=== PATIENT | male | born 1950 | race Caucasian/White ===

== ENCOUNTER → 2018-02-12 07:47 | Outpatient (CLI) | payer MEDICARE, OTHER, SELFPAY ==
--- NOTE | 2018-02-12 07:47 | DT_ITS ---
This patient was seen during an EMR downtime February 11, 2018 - February 18, 2018. This patient may have a combination of paper and electronic documentation or all paper documentation. All documentation is viewable within the e-chart portion of [facility] for each patient visit.
--- NOTE | 2018-02-12 08:05 | US_ITS ---
STUDY: ABDOMINAL ULTRASOUND - RIGHT UPPER QUADRANT REASON FOR VISIT: Male, 67 years old. Elevated LFTs TECHNIQUE: Ultrasound evaluation of the right upper quadrant was performed with real-time and static barragan-scale imaging. TECHNICAL QUALITY: Limited. Examination limited by bowel gas. COMPARISON: None. FINDINGS: Liver: The liver measures 14.17 cm. There is increased echogenicity consistent with fatty infiltration. The bile ducts are within normal limits. There is hepatic color flow. The direction of portal flow is hepatopetal. There is no demonstrated mass lesion. Gallbladder: The patient is status post cholecystectomy. Common Bile Duct (C.B.D.): The common bile duct measures 2.3 mm. Pancreas: There is limited visualization of the pancreas. Right Kidney: Normal size of the right kidney. The right kidney measures 11.7 x 5.0 x 6.1 cm. Normal renal cortex. The right cortex measures 2.4 cm. There is no demonstrated renal mass or cyst. There is no right hydronephrosis. IMPRESSION: Diffuse fatty infiltration of liver, no discrete lesion. Previous cholecystectomy Limited evaluation of the pancreas Electronically Signed: Kurt Cisneros MD at 7:31 EDT , Service support , STUDY: ABDOMINAL ULTRASOUND - LEFT UPPER QUADRANT REASON FOR VISIT: Male, 67 years old. Palpable splenomegaly TECHNIQUE: Ultrasound evaluation of the left upper quadrant was performed with real-time and static barragan-scale imaging. TECHNICAL QUALITY: Limited. Examination limited by bowel gas. COMPARISON: None. FINDINGS: Spleen: Spleen is borderline enlarged at 15.2 x 6.6 x 6.2 cm. No discrete splenic lesion is identified. Limited evaluation of the left kidney shows no suspicious sonographic findings. US/Abdomen Limited IMPRESSION: Borderline splenomegaly, no splenic lesion identified. Electronically Signed: Kurt Cisneros MD at 7:32 EDT , Service support ,
== END ==
PROVIDERS: Family Provider Internal Medicine; PCP Internal Medicine; Visit Provider Internal Medicine
DX: K76.0 Fatty (change of) liver, not elsewhere classified (principal); R16.1 Splenomegaly, not elsewhere classified
CPT/HCPCS: 76705

== ENCOUNTER → 2019-02-12 08:05 | Outpatient (CLI) | payer MEDICARE, OTHER, SELFPAY ==
[2019-01-06 10:11] VITALS: BMI 32.1
--- NOTE | 2019-02-12 08:11 | US_ITS ---
STUDY: ABDOMINAL ULTRASOUND - RIGHT UPPER QUADRANT REASON FOR VISIT: Male, 68 years old. Fatty liver, status post cholecystectomy TECHNIQUE: Ultrasound evaluation of the right upper quadrant was performed with real-time and static barragan-scale imaging. TECHNICAL QUALITY: Adequate. COMPARISON: Previous study of earlier this date 8:07 AM FINDINGS: Liver: The liver measures 18.8 cm. There is increased echogenicity consistent with fatty infiltration. The bile ducts are within normal limits. There is hepatic color flow. The direction of portal flow is hepatopetal. There is no demonstrated mass lesion. Gallbladder: The patient is status post cholecystectomy. Common Bile Duct (C.B.D.): The common bile duct measures 3.4 mm. Pancreas: Normal size of the head, body and tail of the pancreas. There is increased echogenicity of the pancreas. There is no demonstrated pancreatic mass or cyst. Right Kidney: Normal size of the right kidney. The right kidney measures 11.5 x 6.1 x 7.2 cm. Normal renal cortex. The right cortex measures 2.0 cm. There is no demonstrated renal mass or cyst. There is no right hydronephrosis. US/Abdomen Limited IMPRESSION: Mild hepatomegaly. Increased hepatic echogenicity suggestive of steatosis. Status post cholecystectomy. There is no dilatation of the intra or extra hepatic biliary ductal system. Electronically Signed: Lázaro Rodriguez MD at 21:21 EDT , Service support ,
--- NOTE | 2019-02-12 08:20 | US_ITS ---
STUDY: ABDOMINAL ULTRASOUND - RIGHT UPPER QUADRANT REASON FOR VISIT: Male, 68 years old. Splenomegaly TECHNIQUE: Ultrasound evaluation of the right upper quadrant was performed with real-time and static barragan-scale imaging. TECHNICAL QUALITY: Adequate. COMPARISON: None. FINDINGS: The spleen measures 15.2 x 6.0 x 6.3 cm. Splenic volume is approximately 301 mL. The left kidney measures 11.5 x 5.8 x 6.9 cm. Left renal cortex measures 2.6 cm. US/Spleen IMPRESSION: Mild splenomegaly. Electronically Signed: Lázaro Rodriguez MD at 20:16 EDT , Service support ,
== END ==
PROVIDERS: Family Provider Internal Medicine; PCP Internal Medicine; Referring Provider Internal Medicine; Visit Provider Internal Medicine
DX: K76.0 Fatty (change of) liver, not elsewhere classified (principal); R16.1 Splenomegaly, not elsewhere classified
CPT/HCPCS: 76705

== ENCOUNTER → 2019-02-14 08:59 | Outpatient (CLI) | payer MEDICARE, OTHER, SELFPAY ==
[2019-01-06 10:11] VITALS: BMI 32.1
--- NOTE | 2019-02-14 09:03 | CDU_ITS ---
Reason For Study: PVD Rt. Velocities/BP Lt. Velocities/BP Prox CCA 68.5/16.8 cm/sec. Prox CCA 87.5/16.8 cm/sec. Mid CCA 57.5/11.3 cm/sec. Mid CCA 74.9/12.6 cm/sec. Dist CCA 59.7/15.7 cm/sec. Dist CCA 64.5/12.6 cm/sec. Prox ICA 52.6/16.8 cm/sec. Prox ICA 50.4/15.4 cm/sec. Mid ICA 52.6/16 cm/sec. Mid ICA 69.2/24.8 cm/sec. Dist ICA 60.9/20.9 cm/sec. Dist ICA 71.1/21.1 cm/sec. Rt. ICA/CCA = 1.0. Lt. ICA/CCA = 0.9. Prox ECA 86.1/6.9 cm/sec. Prox ECA 112.1/9 cm/sec. Rt. Vert. 44.8/9.9 cm/sec. Lt. Vert. 53.2/16.3 cm/sec. Right Extracranial There is intimal thickening but no significant atherosclerotic plaque noted in the right common carotid artery. There is heterogeneous, irregular atherosclerotic plaque noted in the right internal carotid artery. There is intimal thickening but no significant atherosclerotic plaque noted in the right external carotid artery. Antegrade flow is noted in the right vertebral artery. There is homogeneous, smooth atherosclerotic plaque noted in the right bulb. Left Extracranial There is homogeneous, smooth atherosclerotic plaque noted in the left common carotid artery. There is heterogeneous, irregular atherosclerotic plaque noted in the left internal carotid artery. There is heterogeneous, irregular atherosclerotic plaque noted in the left external carotid artery. Antegrade flow is noted in the left vertebral artery. Procedure Carotid Duplex 03930. Exam performed in department. Interpretation Summary Mild (<50%) stenosis right extracranial internal carotid. Mild (<50%) stenosis left extracranial internal carotid. Flow within the vertebral arteries is antegrade bilaterally. Ordering Physician: Amy Heath Referring Physician: Amy Heath Performed By: Geno Membreno RVT
--- NOTE | 2019-02-14 09:03 | ART_ITS ---
Reason For Study: PVD Procedure A bilateral lower extremity continuous wave Doppler with analog waveform analysis,segmental pressures,and ankle brachial indexes without exercise. Left Segmental Pressures Left brachial= 155mmHg. Left posterior tibial artery = >254mmHg. Left dorsalis pedis artery = >254mmHg. The left dorsalis pedis waveforms are biphasic. The left posterior tibial artery waveforms are biphasic. Right Segmental Pressures Right brachial= 157mmHg. Right posterior tibial artery = >254mmHg. Right dorsalis pedis artery = >254mmHg. Right digit = 80 mmHg. The right dorsalis pedis waveforms are biphasic. The right posterior tibial artery waveforms are biphasic. Indices The right ankle brachial index by the dorsalis pedis is NC. The right ankle brachial index by the posterior tibial artery is NC. The right digital-brachial index is 0.51. The left ankle brachial index by the dorsalis pedis is NC. The left ankle brachial index by the posterior tibial artery is NC. The left digital-brachial index is 0.46. Interpretation Summary Biphasic Doppler waveforms are noted at ankle level bilaterally. Pulse-volume recording waveform amplitudes are diminished at ankle and digital level on the right. Resting ankle-brachial indices could not be determined on either side due to non-compressible vasculature at ankle level bilaterally. Digital-brachial indices are moderately diminished bilaterally. There is evidence of arterial calcification at ankle level bilaterally, rendering the vasculature non-compressible. There appears to be moderate impairment of arterial flow at digital level bilaterally. Ordering Physician: Amy Heath Referring Physician: Amy Heath Performed By: Geno Membreno RVT
--- NOTE | 2019-02-14 09:04 | ECHOCS_ITS ---
Reason For Study: CAD Procedure This was a 2D Doppler, Color Flow transthoracic echocardiogram. The study was technically difficult. Due to body habitus. Contrast injection was performed. Exam performed in department. Left Ventricle Borderline enlarged left ventricle. Segmental dysfunction with preserved ejection fraction (see wall motion). The estimated ejection fraction is 55 %. There is evidence of diastolic dysfunction. Basal inferoseptal: Hypokinetic. Basal anteroseptal: Hypokinetic. Mid-inferoseptal : Hypokinetic. Mid- anteroseptal : Hypokinetic. Right Ventricle Normal RV size. Normal systolic function. Atria The left atrium is mildly enlarged. Normal right atrium. No doppler evidence for ASD. Mitral Valve There is no mitral annular calcification. Normal mitral valve. Trivial mitral valve insufficiency. Tricuspid Valve Normal tricuspid valve. Trivial tricuspid valve insufficiency. Unable to estimate RV systolic pressure/pulmonary artery pressure due to technically difficult study. Aortic Valve Trisinus/trileaflet aortic valve. Moderate focal aortic valve calcification. Mild aortic stenosis. Pulmonic Valve The pulmonic valve is not well visualized. Great Vessels Normal sized aortic root. Pericardium/Pleural No pericardial effusion. Medication 22 gauge I.V. with prn adaptor inserted into right arm. Diluted definity 4.0ml given slow IV push to enhance endocardial definition. MMode/2D Measurements & Calculations LVIDd: 5.5 cm IVSd: 1.2 cm LVOT diam: 2.2 cm LVIDs: 4.5 cm LVPWd: 1.2 cm FS: 17.2 % LVOT area: 3.9 cm2 Ao root diam: 3.6 cm LAV(MOD-bp): 92.3 ml LA A4 area: 23.1 cm2 LAV(MOD-bp) Indexed: 41.3 ml/m2 LAV(MOD-sp2): 112.6 ml LAV(MOD-sp4): 73.5 ml LA dimension(2D): 5.3 cm RA A4 area: 15.2 cm2 Time Measurements MV dec time: 0.21 sec Doppler Measurements & Calculations MV E max faheem: 63.6 cm/sec Lat Peak E' Faheem: 10.3 cm/sec Med Peak E' Faheem: 4.4 cm/sec MV A max faheem: 84.6 cm/sec E/E' lat: 6.2 E/E' med: 14.4 MV E/A: 0.75 Ao V2 max: 199.6 cm/sec LV V1 max: 68.9 cm/sec SV(LVOT): 60.9 ml Ao max P.9 mmHg LV V1 max P.9 mmHg Ao V2 mean: 146.2 cm/sec LV V1 mean P.2 mmHg Ao mean P.2 mmHg LV V1 mean: 52.1 cm/sec Ao V2 VTI: 46.7 cm LV V1 VTI: 15.5 cm MORA(I,D): 1.3 cm2 MORA(V,D): 1.4 cm2 PA V2 max: 80.8 cm/sec Interpretation Summary The study was technically difficult. Contrast injection was performed. Borderline enlarged left ventricle. Segmental dysfunction with preserved ejection fraction (see wall motion). The estimated ejection fraction is 55 %. The left atrium is mildly enlarged. Trivial mitral valve insufficiency. Trivial tricuspid valve insufficiency. Mild aortic stenosis. Unable to estimate RV systolic pressure/pulmonary artery pressure due to technically difficult study. There is evidence of diastolic dysfunction. Ordering Physician: Isac Turcios Referring Physician: Amy Heath Performed By: Mitali Healy, JUAN DAVID, RVT
== END ==
PROVIDERS: Family Provider Internal Medicine; PCP Internal Medicine; Referring Provider Internal Medicine; Visit Provider Internal Medicine
DX: I25.10 Atherosclerotic heart disease of native coronary artery without angina pectoris (principal); I73.9 Peripheral vascular disease, unspecified; I65.23 Occlusion and stenosis of bilateral carotid arteries
CPT/HCPCS: 93306; 93880; 93923; Q9957; A4216; C8929

== ENCOUNTER → 2019-03-06 13:57 | Outpatient (CLI) | payer MEDICARE, OTHER, SELFPAY ==
[2019-01-06 10:11] VITALS: BMI 32.1
--- NOTE | 2019-03-06 13:59 | CT_ITS ---
HISTORY: ARTERIAL STENOSIS/LT ANKLE PAIN. Hx of CABG, Diabetes and HTN-rx controlled. Metformin instructions given. TECHNIQUE: Serial transverse images of the abdomen, pelvis and bilateral lower extremities was performed Following the intravenous administration of 100ml ml of Isovue 370 Iodinated contrast was used, using a CTA runoff protocol. Multiple reconstructions were performed. A dose reduction technique was utilized. COMPARISON: Abdominal ultrasound February 12, 2018 FINDINGS: # of images incl. paperwork: [id number] --Abdomen/Pelvis: Interstitial basilar pulmonary edema. Cardiomegaly. Previous median sternotomy. Likely previous CABG. Coronary artery calcific ASCVD. Cholecystectomy. The stomach contains food and liquid and gas. The spleen, pancreas, liver, and adrenal glands are normal. Scarring to the kidneys left greater than right. Atherosclerotic disease is present within the thoracic and abdominal aortas without aneurysm, dissection, stenosis, or occlusion. Atherosclerotic plaque is present within the celiac trunk, the SMA, bilateral renal arteries, and the DUNCAN. There are 2 left and 2 right renal arteries. The more inferior of the renal arteries have more anterior and inferior origins. The bladder is mostly decompressed. The prostate gland is not enlarged. Bilateral inguinal hernias containing fat, the left larger than the right. No ascites. No pelvic adenopathy. There may be a tiny normal appendix coming off of the posterior aspect of the cecum, series 2 image 83 Atherosclerotic plaque from the abdominal aorta continues in the bilateral common, external, and internal iliac arteries. These arteries remain patent. Both common femoral arteries are fed by the external iliac arteries. Inferior epigastric arteries are patent with atherosclerotic disease. Right lower extremity: Flow is present within the right common femoral, superficial femoral, frontotemporal is arteries. Atherosclerotic plaque is present throughout the course of the right superficial femoral artery. The vessel remains patent to the popliteal artery. OPTi artery remains patent providing flow to the anterior tibial, tibioperoneal trunk, posterior tibial, and peroneal arteries. Atherosclerotic plaque is severe within these vessels. Due to the severity of the circumferential calcific plaque within these 3 calf vessels is difficult to assess whether there is flow within the lumen of the vessel. I believe there likely is flow within the distal aspect of the anterior posterior tibial arteries with the anterior tibial artery providing flow to the dorsalis pedis. There is likely a short segment occlusion of the right peroneal artery. I believe the posterior tibial artery remains patent to the plantar surface of the foot. Left lower extremity: The left superficial femoral and profunda femoris arteries are patent. Circumferential calcific atherosclerotic disease is present on the left to a similar degree severity as on the right. The left superficial femoral artery provides flow to the left popliteal artery. Left anterior tibial, left tibioperoneal trunk, posterior tibial, and peroneal arteries all demonstrate flow. There is a short segment of the proximal left peroneal artery with there is a critical stenosis versus short segment occlusion. At about this level is also difficult to assess for flow within the anterior and posterior tibial arteries due to the severity of the circumferential calcific plaque. Similar to the right leg, I do believe these arteries do remain patent to the ankle supplying the dorsalis pedis and the plantar surface of the foot. There is some atrophy of the muscles within the legs. There is low amounts of fat within the calves. No osseous erosions are perceived. IMPRESSION: Cardiomegaly. Previous median sternotomy and likely CABG. Persisting coronary artery calcific ASCVD. Atherosclerotic plaque within all arteries. This is more severe within the smaller arteries. This calcific plaque is circumferential and suggestive of long-standing type 2 diabetes, sometimes called [place] calcifications. Although there is atherosclerotic disease within the aorta, the common iliac, external iliac, and internal iliac arteries, these arteries remain patent. Disease becomes more severe within the superficial femoral and profunda femoris arteries and continues into the popliteal arteries. Disease is most severe within the cavernous within bilateral anterior tibial, posterior tibial, and peroneal arteries. Due to the severity of the calcifications within the carpio of these vessels, and the relative decreased density of the contrast potentially within the lumen of these vessels, and is difficult to assess the severity of the stenoses and possible occlusions within these vessels. Within both peroneal arteries there are short segments of perceived occlusions. CT/CTA Abd w/Runoff W/WO Contrast IMPRESSION: Individualized dose optimization techniques were used for this CT. at 2241 Reported and signed by: Thom Segura MD Electronically Signed: Thom Segura MD at 22:39 EDT Tel , Service support ,
[2019-03-06 14:31] LABS: CREATININE FINGERSTICK 1.2 mg/dL (0.70-1.30)
== END ==
PROVIDERS: Family Provider Internal Medicine; PCP Internal Medicine; Referring Provider Internal Medicine; Visit Provider Internal Medicine
DX: I77.1 Stricture of artery (principal)
CPT/HCPCS: 75635; Q9967

== ENCOUNTER → 2019-07-29 06:34 | Outpatient (CLI) | payer MEDICARE, OTHER, SELFPAY ==
[2019-07-15 08:38] VITALS: BMI 32.1
--- NOTE | 2019-07-29 12:49 | STRESSREP_ITS ---
Stress Test Report Date: 07-29-19 Procedure: Exercise tolerance test/imaging study Indications: Shortness of breath; CAD; PCI Consent: Per the patient Procedure: The patient exercised on a Hernán protocol for 6 minutes completing Stage II achieving a peak heart rate of 106 bpm (70 % predicted maximal heart rate) with a peak blood pressure 160/80 mmHg and a peak MET capacity of 7 METs. The baseline ECG demonstrated normal sinus rhythm; nonspecific T wave abnormality. The peak exercise ECG demonstrated somatic/motion artifact with no obvious ECG changes at the heart rate achieved; recovery ECG with diffuse subtle downsloping ST segment depression/nonspecific T wave abnormality. There were no cardiac dysrhythmias pretest, during exercise, or recovery. The functional capacity was considered decreased. There was no complaint of chest discomfort during exercise or recovery. The examination was discontinued secondary to discomfort. Impression: 1. Technically adequate (percent predicted maximal heart rate greater than 85%) exercise tolerance test 2. Peak exercise ECG with somatic/motion artifact with no obvious ECG changes at the heart rate achieved; recovery ECG with diffuse subtle downsloping ST segment depression/nonspecific T wave abnormality 3. There were no cardiac dysrhythmias pretest, during exercise, or recovery 4. Pharmacologic (Regadenoson) evaluation pending Procedure: Pharmacologic stress nuclear imaging study Consent: Per the patient Procedure: The patient underwent pharmacologic (Regadenoson) evaluation with a peak heart rate of 90 beats per minute (59 %predicted maximal heart rate) and a peak blood pressure of 148/80 mmHg. The baseline ECG demonstrated sinus rhythm with nonspecific ST/T wave abnorm ality. The peak pharmacologic ECG demonstrated continued nonspecific ST/T wave abnormality. There were no cardiac dysrhythmias pretest, during pharmacologic infusion, or recovery. There was no complaint of chest discomfort during pharmacologic infusion or recovery. The examination was discontinued secondary to completion of protocol. Impression: 1. Pharmacologic (Regadenoson) evaluation 2. Peak pharmacologic ECG with continued nonspecific ST/T wave abnormality. 3. There were no cardiac dysrhythmias pretest, during pharmacologic infusion, or recovery. 4. Nuclear images pending Myocardial perfusion imaging study: Technique: The patient was injected with 15.0 millicuries of technetium 99m Cardiolite and subsequently rest SPECT Cardiolite nuclear imaging was obtained in the horizo ntal long, vertical long, and short axis views. The patient exercised on a Hernán protocol for 6 minutes completing Stage II achieving a peak heart rate of 106 bpm (70 % predicted maximal heart rate) with a peak blood pressure 160/80 mmHg and a peak MET capacity of 7 METs. The patient underwent pharmacologic (Regadenoson) evaluation with a peak heart rate of 90 beats per minute (59 % percent predicted maximal heart rate) and a peak blood pressure of 148/80 mmHg. The patient was injected with 45.0 millicuries of technetium 99m Cardiolite and subsequently stress SPECT Cardiolite nuclear imaging was obtained in the horizontal long, vertical long, and short axis views. A gated Cardiolite study at peak stress was obtained. Interpretation: Rest and stress SPECT Cardiolite nuclear imaging status post realignment, normalization, and attenuation correction demonstrate at rest relative uniform tracer uptake and status post stress an area of diminished tracer uptake in portions of the distal inferior and inferior apical segments. There is end systolic thickening and brightening. The gated Cardiolite study demonstrates myocardial thickening and inward wall motion. The reported LVEF is 51 %. Impression: 1. Rest and stress SPECT currently nuclear imaging demonstrate cardial perfusion changes potentially compatible with shifting soft tissue attenuation and/or physiologic apical thinning although an area of stress-induced myocardial ischemia in portions of the distal inferior and inferior apical segments cannot be excluded. 2. The gated Cardiolite study reports an LVEF of 51 %. This note was generated with [employer] software. It may contain incorrect words, spelling, and punctuation that were not noted in checking the note before signing.
== END ==
PROVIDERS: Family Provider Internal Medicine; PCP Internal Medicine; Referring Provider Physician Assistant Medical; Visit Provider Physician Assistant Medical
DX: I25.10 Atherosclerotic heart disease of native coronary artery without angina pectoris (principal)
CPT/HCPCS: 78452; 93017; A9500; A4216; J2785

== ENCOUNTER 2019-08-26 08:55 | Day surgery (SDC) | payer MEDICARE, OTHER, SELFPAY ==
[2019-07-15 08:38] VITALS: BMI 32.1
[2019-08-05 09:00] VITALS: BMI 32.1
--- NOTE | 2019-08-05 09:04 | RAD_ITS ---
STUDY: X-RAY CHEST REASON FOR EXAM: Male, 68 years old. TECHNIQUE: 2 views COMPARISON: March 24, 2015 FINDINGS: The heart is not enlarged the lung carver are clear there is elevation of the right hemidiaphragm. The previously described air space disease in the left base is no longer identified in today's examination. There is no pleural effusion or pneumothorax noted. The trachea is in the midline. The visualized bony structures are intact. There are multiple metallic stitches along the sternum from previous surgery. RAD/Chest PA and Lateral IMPRESSION: No active intrathoracic disease I recommend ultrasound to check the liver in this patient. Electronically Signed: Betzy Garcia, at 8:34 EST Tel , Service support ,
[2019-08-06 09:10] LABS: Hematocrit 42.7 % (40-54); Hemoglobin 14.8 g/dL (13.0-16.5); Mean Corp Hgb Conc 34.7 g/dL (32-36); Mean Corpuscular Hgb 30.9 pg (27.0-32.0); Mean Corpuscular Volume 89.1 fL (80-94); Mean Platelet Vol. 10.5 fl (6.2-12.0); Platelet Count 200 K/mm3 (150-450); Prothrombin Time (Protime)PT. 12.7 SECONDS (11.7-14.9); RBC Distribution Width CV 13.2 % (11.6-14.6); Red Blood Count 4.79 M/mm3 (4.6-6.2); White Blood Count 11.1 K/mm3 (4.4-11.0)
[2019-08-06 09:11] LABS: Anion Gap 8 (5-15); BUN 19 mg/dL (7-18); BUN/Creat Ratio 21.6 RATIO (10-20); Calcium,Total 9.8 mg/dL (8.5-10.1); Chloride 108 mmol/L (98-107); Creatinine, Serum 0.88 mg/dL (0.70-1.30); EST Glomerular Filtration Rate 91 mL/min (>60); Est Glom Filt Rate - Afr Amer 110 mL/min (>60); Glucose 161 mg/dL (74-106); Sodium Level 141 mmol/L (136-145)
[2019-08-26] VITALS (16 sets, daily range): BP systolic 113–158; BP diastolic 41–90; PULSE 65–83; RESP 12–26; TEMP 36.9–37.3; O2SAT 92–99; BMI 32.1
--- NOTE | 2019-08-26 09:35 | HP.PCM_ITS ---
History and Physical Date of Admission: 08/26/19 [facility] History of Present Illness Details: This is a 68-year-old gentleman that presents here today for a heart catheterization. He has a history of coronary artery disease with bypass surgery in 2014 and remote stenting in 1998. He also has a history of hypertension, hyperlipidemia, SHAE and diabetes. From a cardiac standpoint, patient is doing well. He does not have any chest discomfort/heaviness/tightness. He does feel that he his energy level has decreased but he still keeps himself active. He does not have any worsening symptoms of shortness of breath. He denies any PND. He does not have any orthopnea. He does not have any symptoms of congestive heart failure. He does not have any palpitations that he is aware of. He does not have any lightheadedness or dizziness. He does not have any near-syncope or syncope. He does not have any lower extremity edema. He does not have any symptoms of claudication. 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 Accompanied by: None Is patient in pain?: No Allergies rosuvastatin calcium [From Crestor] Allergy (Verified 07/15/19 08:38) Unknown Medications Insulin Glargine [Lantus (BKC)] 28 units SC QHS 03/01/15 [History Confirmed 07/15/19] Insulin Lispro [Humalog] 0 unit SQ TID 03/01/15 [History Confirmed 07/15/19] Nitroglycerin (INPATIENT USE) [Nitrostat] 0.4 mg SUBLINGUAL Q5M PRN 03/01/15 [History Confirmed 07/15/19] Duloxetine HCl 30 mg PO DAILY 04/30/17 [History Confirmed 07/15/19] Ergocalciferol [Vitamin D] 50,000 unit PO QWEEK 04/30/17 [History Confirmed 07/15/19] aspirin 81 mg tablet,delayed release 81 mg PO QDAY tab 11/16/17 [History Confirmed 07/15/19] dulaglutide 0.75 mg/0.5 mL subcutaneous pen injector 0.75 mg SC .COMPLEX 11/16/17 [History Confirmed 07/15/19] metformin 1,000 mg tablet 1,000 mg PO BID 11/16/17 [History Confirmed 07/15/19] atenolol 25 mg tablet 25 mg PO BID tab 12/31/17 [History Confirmed 07/15/19] ramipril 10 mg capsule 10 mg PO QDAY cap 12/31/17 [History Confirmed 07/15/19] testosterone 1.62 % (20.25 mg/1.25 gram) transdermal gel packet 2 packet TOPICAL QDAY g 12/31/17 [History Confirmed 07/15/19] atorvastatin 10 mg tablet 10 mg PO BID tab 01/06/19 [History Confirmed 07/15/19] [facility] Medical History (Updated 07/15/19 @ 08:54 by TREVON Montanez) PVD (peripheral vascular disease) (Chronic) Essential hypertension (Chronic) Type 2 diabetes mellitus (Chronic) Hyperlipidemia (Chronic) Atherosclerotic heart disease of augustine coronary artery without angina pectoris (Chronic) Paroxysmal atrial fibrillation (Chronic) Polymyalgia rheumatica (Acute) Long-term use of high-risk medication (Chronic) SHAE (obstructive sleep apnea) (Chronic) Detached retina, left (Resolved) Hypertension (Inactive) Surgical History Presence of stent in coronary artery (Chronic ~04/28/99) Aortocoronary bypass status (Chronic ~03/09/15) Postsurgical percutaneous transluminal coronary angioplasty (PTCA) status (Chronic ~04/28/99) Family History Father Atrial fibrillation Mother CAD (coronary artery disease) Social History (Updated 07/15/19 @ 09:21 by TREVON Montanez) Smoking Status: Current every day smoker alcohol intake: current details: occasional substance use type: does not use ROS Const Const: Positive for fatigue; negative for weakness, frequent falls, excessive sweating, weight gain or weight loss Eyes Eyes: Negative for transient loss of vision, blurry vision or change in vision ENT ENT: Negative for dizziness or balance problems Cardio Chest Pain: No Palpitations: No Edema: None Muscle aches with walking: None Resp Respiratory: Negative for SOB with activity or SOB at rest GI GI: Negative vomiting or vomiting blood/hematemesis : Negative for hematuria Musc Musc: Negative for balance problems Skin Skin: Negative non-healing lesions or rash Neuro Neuro: Negative for dizziness, frequent falls, weakness or blurry vision Mitch Hematologic/Lymphatic: Negative for easy bleeding Endo Endo: Positive for fatigue; negative for excessive sweating Psych Psych: Negative for anxiety or depression Allergy Allergy/Immunology: Negative for rash Cardiology Exam Const Appearance: cooperative, healthy appearing, comfortable, no acute distress, well developed and well groomed Nutritional Appearance: well nourished and overweight Orientation: alert, awake and oriented x3 Head Head: normal to inspection Ears: hearing grossly normal bilaterally Nose: external nose normal Face and Sinus: face symmetric Mouth: oral mucosae normal Teeth and gingiva: fair dentition Neck Neck: normal visual inspection and full ROM Carotids: normal carotid upstroke Chest Chest inspection: normal inspection of the chest and symmetric chest movement Auscultation: Bilateral: Clear to Auscultation Cardio Palpation: normal PMI Rate: regular rate Rhythm: regular rhythm Heart sounds: S1 normal and S2 normal Murmur: Grade 1/6, soft and mid systolic GI GI: normal to inspection, soft, no hepatosplenomegaly and bowel sounds present Neuro General: alert, awake, oriented x3 and moves all extremities Skin Skin: no rashes or lesions noted Extremities Pulses: Normal: Right Radial Pulse, Left Radial Pulse Lower Extremity Edema: None: Bilateral Psych Psychological: normal affect Assessment & Plan 1. Atherosclerosis of augustine coronary artery of augustine heart without angina pe ctoris I25.10 PTCA/Stent to prox LAD 04/28/99; CABG x 2- BAUM to LAD, RSVG to RPDA 03/09/15 Plan Patient is having increase in fatigue and decrease in exercise tolerance. He does not have any chest discomfort. He underwent a stress test on 07/29/2019 that showed an area of stress-induced micro-ischemia portion of the distal inferior and inferior apical segments cannot be excluded. Because of this, he will proceed with left heart catheterization. Based on results, further recommendation be made. 2. Paroxysmal atrial fibrillation I48.0 Plan Patient has not had any further symptoms. We will continue to monitor. 3. Essential hypertension I10 Plan At this time, this appears stable. This would be followed on an outpatient basis. 4. Hyperlipidemia, unspecified hyperlipidemia type E78.5 Plan This is managed by his primary care doctor. Patient will continue with current medical management. Plan Detail Additional Comments Thank you for allowing us to participate in patient's plan of care, if you have any questions please do not hesitate to call. This note was generated using a voice recognition system and there may be incorrect words, spelling or punctuation errors that were not noted when reviewing the office note prior to saving. Stress Test Report Date: 07-29-19 Procedure: Exercise tolerance test/imaging study Indications: Shortness of breath; CAD; PCI Consent: Per the patient Procedure: The patient exercised on a Hernán protocol for 6 minutes completing Stage II achieving a peak heart rate of 106 bpm (70 % predicted maximal heart rate) with a peak blood pressure 160/80 mmHg and a peak MET capacity of 7 METs. The baseline ECG demonstrated normal sinus rhythm; nonspecific T wave abnormality. The peak exercise ECG demonstrated somatic/motion artifact with no obvious ECG changes at the heart rate achieved; recovery ECG with diffuse subtle downsloping ST segment depression/nonspecific T wave abnormality. There were no cardiac dysrhythmias pretest, during exercise, or recovery. The functional capacity was considered decreased. There was no complaint of chest discomfort during exercise or recovery. The examination was discontinued secondary to discomfort. Impression: 1. Technically adequate (percent predicted maximal heart rate greater than 85%) exercise tolerance test 2. Peak exercise ECG with somatic/motion artifact with no obvious ECG changes at the heart rate achieved; recovery ECG with diffuse subtle downsloping ST segment depression/nonspecific T wave abnormality 3. There were no cardiac dysrhythmias pretest, during exercise, or recovery 4. Pharmacologic (Regadenoson) evaluation pending Procedure: Pharmacologic stress nuclear imaging study Consent: Per the patient Procedure: The patient underwent pharmacologic (Regadenoson) evaluation with a peak heart rate of 90 beats per minute (59 %predicted maximal heart rate) and a peak blood pressure of 148/80 mmHg. The baseline ECG demonstrated sinus rhythm with nonspecific ST/T wave abnormality. The peak pharmacologic ECG demonstrated continued nonspecific ST/T wave abnormality. There were no cardiac dysrhythmias pretest, during pharmacologic infusion, or recovery. There was no complaint of chest discomfort during pharmacologic infusion or recovery. The examination was discontinued secondary to completion of protocol. Impression: 1. Pharmacologic (Regadenoson) evaluation 2. Peak pharmacologic ECG with continued nonspecific ST/T wave abnormality. 3. There were no cardiac dysrhythmias pretest, during pharmacologic infusion, or recovery. 4. Nuclear images pending Myocardial perfusion imaging study: Technique: The patient was injected with 15.0 millicuries of technetium 99m Cardiolite and subsequently rest SPECT Cardiolite nuclear imaging was obtained in the horizontal long, vertical long, and short axis views. The patient exercised on a Hernán protocol for 6 minutes completing Stage II achieving a peak heart rate of 106 bpm (70 % predicted maximal heart rate) with a peak blood pressure 160/80 mmHg and a peak MET capacity of 7 METs. The patient underwent pharmacologic (Regadenoson) evaluation with a peak heart rate of 90 beats per minute (59 % percent predicted maximal heart rate) and a peak blood pressure of 148/80 mmHg. The patient was injected with 45.0 millicuries of technetium 99m Cardiolite and subsequently stress SPECT Cardiolite nuclear imaging was obtained in the horizontal long, vertical long, and short axis views. A gated Cardiolite study at peak stress was obtained. Interpretation: Rest and stress SPECT Cardiolite nuclear imaging status post realignment, normalization, and attenuation correction demonstrate at rest relative uniform tracer uptake and status post stress an area of diminished tracer uptake in portions of the distal inferior and inferior apical segments. There is end systolic thickening and brightening. The gated Cardiolite study demonstrates myocardial thickening and inward wall motion. The reported LVEF is 51 %. Impression: 1. Rest and stress SPECT currently nuclear imaging demonstrate cardial perfusion changes potentially compatible with shifting soft tissue attenuation and/or physiologic apical thinning although an area of stress-induced myocardial ischemia in portions of the distal inferior and inferior apical segments cannot be excluded. 2. The gated Cardiolite study reports an LVEF of 51 %. Cardiac catheterization: 03-02-15 Final impression: 1. Elevated left ventricular end diastolic pressure compatible decreased diastolic compliance 2. Left ventricle: A. Normal left ventricular size, wall motion, and systolic function B. Estimated LVEF of 60% 3. Left main coronary artery: A. Angiographically normal 4. Left anterior descending coronary artery: A. Proximal mild calcification B. Proximal stent C. Proximal 85% appearing stenosis involving the proximal portion of the stent D. Mid 95-99% appearing stenosis 5. Left circumflex coronary artery: A. Status post the takeoff of the OM vessel: An area of discrete near subtotal occlusion prior to continuation in the AV groove 6. Right coronary artery: A. Large dominant vessel B. Proximal to mid mild calcification C. Mid 75% eccentric irregular appearing stenosis D. Right AV segment: 85% irregular appearing stenosis 7. Mitral valve: A: Mild mitral valve regurgitation CAB03-09-15: Performed at [facility] BAUM to the LAD SVG to the right PDA Echocardiogram in 02/2019: Borderline enlarged left ventricle. Segmental dysfunction with preserved ejection fraction (see wall motion). The estimated ejection fraction is 55 %. The left atrium is mildly enlarged. Trivial mitral valve insufficiency. Trivial tricuspid valve insufficiency. Mild aortic stenosis. Unable to estimate RV systolic pressure/pulmonary artery pressure due to technically difficult study. There is evidence of diastolic dysfunction. Diagnostics Electrocardiogram 05/01/17 Echocardiogram 02/14/19 Abdomen Ultrasound 02/12/19
--- NOTE | 2019-08-26 11:36 | CL.I_ITS ---
Patient Name: MAYI BRANDT Study Date: 08/26/2019 Performing: Latrell Qureshi MD Ht: 70.86 inches 180 cm : 1950 Wt: 229.28 lbs 104 kg Age: 68 Gender: male BSA: 2.23 PROCEDURE(S) PERFORMED [id number] W OR WO PTCA, SINGLE CORONARY ARTERY CLINICAL PROFILE AND CO-MORBIDITIES Indications: Stable Known CAD, LV Dysfunction Heart Failure: NYHA Class: 1, Newly Diagnosed: No, Heart Failure Type: Systolic Stress/Imaging Date: 07/29/2019 Stress Test with SPECT MPI: Positive Low Risk CAD Presentations: No Sxs, no angina. Comorbidities/Risk Factors: Hypertension Dyslipidemia Prior CHF Prior CABG Diabetes Mellitus: Diabetes Therapy: Insulin CONCLUSIONS Successful PTCA/LINDSEY to proximal OM#1 with a 2.25 x 20 Promus Syergy stent, post dilated in proximal 1 /2 with a 2.5 x 8 NC Balloon; 75%-->0%, no dissection. RECOMMENDATIONS Highly recommend quitting all tobacco products Follow up with primary betting agency manager Risk factor modification ASA Indefinitley Plavix for at least 12 months Routine post interventional care Refer for Outpatient Cardiac Rehab Manual sheath removal per protocol Follow up with Dr. Carlson PCI of BAUM to LAD via the BAUM in 2-3 weeks with new dye load. Manual sheath removal. DESCRIPTION OF PROCEDURE The patient arrived to the procedure lab. The risks and benefits of the procedure as well as a full d escription of our services here and current unavailability of surgical backup were fully explained to the patient and/or their significant other prior to the catheterization. The Timeout was completed, verifying the correct patient and procedure. The patient's procedural site was prepped and draped in the usual fashion. Local anesthetic was given subcutaneously to right groin region with Lidocaine 2% Using a modified Seldinger technique,arterial access was obtained via the right femoral artery, a 4Fr sheath was inserted Left Coronary Artery selective angiography was performed in multiple views using a 4 Fr. JL5 catheter. Right Coronary Artery selective angiography was then performed in multiple vie ws using a 4 Fr. 3DRC catheter. Left internal mammary artery graft to the LAD selective angiography w as performed in multiple views using a 4 Fr. JR4 catheter. Left internal mammary artery graft to the LAD selective angiography was performed in multiple views using a 4 Fr. IM catheter. Lef t Ventriculography was performed in STAPLES projection using a 4 Fr. Pigtail catheter. LV to AO pullback pressures were then recorded.The images were reviewed and options discussed. A decision was then made to proceed with an Intervention, IVUS or other adjunct procedure. Arterial sheath was exchanged for a 6 Fr Sheath. EBU 3.75 Guide catheter was inserted and engaged into the LCA. [employer] [place] Guide wire was advanced to the Circumflex. Emerge 2.[address] was inserted. Balloon catheter was advanced across lesion in the first obtuse marginal, proximal. PTCA balloon inflated at 8 atms for 13 secs. Synergy 2.25 x 20 Drug Eluting stent was inserted. Drug Eluting stent was advanced across the lesion in the first obtuse marginal, proximal. NC Emerge 2.5 x 8 Balloon catheter was inserted. Drug Eluting stent was advanced across the lesion in the first obtu se marginal, proximal. The arterial sheath was pulled and manual compression applied until hemostas is is achieved. INTERVENTION INFORMATION LESION SITE: 1st OM (Proximal) Lesion Complexity: High/C, lesion at bifurcation: No, thrombus present: No, lesion length: 20 mm, cul prit lesion: Yes Pre Stenosis: 75 % Pre intervention FEDERICO flow: 3 PROCEDURE: Drug Eluting Stent with pre and post dilatation Post Stenosis: 0 % Post intervention FEDERICO flow: 3 Lesion Devices: roomlinxtronic 6 Fr EBU3.75 100cm Guide Catheter [place] .014 [employer] [place] Straight 190cm Tanvir Sci EMERGE MR 2.00x12 BALLOON Tanvir Sci Synergy MR LINDSEY 2.25x20 Tanvir Sci NC EMERGE MR 2.50x08 BALLOON COMPLICATIONS No Complications PROCEDURE MEDICATIONS Versed 1 mg IV Oxygen: 2 L/min via nasal cannula Heparin 6000 unit(s) IV 08/26/2019 11:14:11 Nitro 200 mcg IC 08/26/2019 11:14:59 IV Bolus: .9 NaCl 250 ml total 08/26/2019 11:14:19 SUMMARY OF HEMODYNAMIC DATA Time AIR REST ECG 09:12:16 AO 135/61 (89) SA 10:45:56 LV 167/-1, 31 11:04:19 LV 166/-2, 28 11:04:25 LV 154/1, 31 11:05:08 LV 159/3, 30 11:05:15 LVp 161/-2, 29 11:05:19 AO 160/65 (100) 11:05:24 Signed By Latrell Qureshi MD On 08/26/2019 11:36:16 Latrell Qureshi MD
[2019-08-26 11:45] LABS: ACT Activated Clotting Time 175 sec (74-137)
--- NOTE | 2019-08-26 12:07 | CL.D_ITS ---
Patient Name: MAYI BRANDT Study Date: 08/26/2019 Performing: Aleks Carlson MD Ht: 70.86 inches 180 cm : 1950 Wt: 229.28 lbs 104 kg Age: 68 Gender: male BSA: 2.23 PROCEDURE(S) PERFORMED NG19-XDQ/COR/LV/CABG PE24-IMG W OR WO PTCA, SINGLE CORONARY ARTERY CLINICAL PROFILE AND INDICATIONS Indications: Stable Known CAD, LV Dysfunction, Suspected CAD Heart Failure: NYHA Class: 1, Newly Diagnosed: No, Heart Failure Type: Systolic Stress/Imaging Date: 07/29/2019Stress Test with SPECT MPI: Positive Low Risk Angina Classification Anginal Classification w/in 2 Weeks: CCS III CAD Presentations: No Sxs, no angina. Stable angina. Comorbidities/Risk Factors: Hypertension Dyslipidemia Prior CHF Prior CABG Diabetes Mellitus: Diabetes Therapy: Insulin CONCLUSIONS Elevated Left Ventricular End Diastolic Pressure Segmented LV systolic dysfunction- Mild LVEF: by LV gram 50 % [place] Multivessel CAD BAUM to LAD: patent SVG to RCA: occluded Left to Right collateral flow RECOMMENDATIONS Risk factor modification Medical therapy Referred for immediate PCI (OM1) and Staged percutaneous intervention (LAD) DESCRIPTION OF PROCEDURE The patient arrived to the procedure lab. The risks and benefits of the procedure as well as a full d escription of our services here and current unavailability of surgical backup were fully explained to the patient and/or their significant other prior to the catheterization. The Timeout was completed, verifying the correct patient and procedure. The patient's procedural site was prepped and draped in the usual fashion. Local anesthetic was given subcutaneously to right groin region with Lidocaine 2%. Using a modified Seldinger technique, arterial access was obtained via the right femoral artery, a 4 Fr sheath was inserted Left Coronary Artery selective angiography was performed in multiple views us ing a 4 Fr. JL5 catheter. Right Coronary Artery selective angiography was then performed in multiple views using a 4 Fr. 3DRC catheter. Left internal mammary artery graft to the LAD selective angiograph y was performed in multiple views using a 4 Fr. JR4 catheter. Left internal mammary artery graft to the LAD selective angiography was performed in multiple views using a 4 Fr. IM catheter. Lef t Ventriculography was performed in STAPLES projection using a 4 Fr. Pigtail catheter. LV to AO pullback pressures were then recorded.The arterial sheath was pulled and manual compression applied until hemo stasis is achieved. CORONARY ANGIOGRAPHY DOMINANCE: Right Dominant LEFT HEART ASSESSMENT Left Ventricular Ejection Fraction: by LV Gram 50 % Inferior: basal akinesis; mid hypokinesis; inferoapical hypokinesis Elevated Left Ventricular End Diastolic Pressure LVEDP: 28 mmHg LEFT MAIN: Angiographically normal LEFT ANTERIOR DESCENDING ARTERY: PROX LAD: Previously placed stent has an instent 85 % restenosis MID LAD: is occluded, distal to the BAUM graft attachment: long: diffuse: 90 % Stenosis CIRCUMFLEX ARTERY: MID CIRC: small caliber vessel: mid: 75 % Stenosis OM 1: Proximal - hazy: 75 % Stenosis RIGHT CORONARY ARTERY: Mild luminal irregularities MID RCA: hazy: 50 - 75 % Stenosis RIGHT AV SEGMENT: is occluded GRAFTS: BAUM graft to the Mid LAD is patent Saphenous Vein graft to the RCA is totally occluded COLLATERAL FLOW: Collateral flow from Left to Right AORTIC ROOT: Angiographically normal COMPLICATIONS No Complications PROCEDURE MEDICATIONS Versed 1 mg IV Oxygen: 2 L/min via nasal cannula Heparin 6000 unit(s) IV 08/26/2019 11:14:11 Nitro 200 mcg IC 08/26/2019 11:14:59 IV Bolus: .9 NaCl 250 ml total 08/26/2019 11:14:19 SUMMARY OF HEMODYNAMIC DATA Time AIR REST ECG 09:12:16 AO 135/61 (89) SA 10:45:56 LV 167/-1, 31 11:04:19 LV 166/-2, 28 11:04:25 LV 154/1, 31 11:05:08 LV 159/3, 30 11:05:15 LVp 161/-2, 29 11:05:19 AOp 160/65 (100) 11:05:24 Signed By Aleks Carlson MD On 08/26/2019 12:06:01 PM Aleks Carlson MD
[2019-08-26] MEDS: 0.9% Normal Saline 1,000 ML 150 ML IV (12:15)
--- NOTE | 2019-08-26 12:48 | EKG12_ITS ---
Test Reason : Blood Pressure : / mmHG Vent. Rate : 073 BPM Atrial Rate : 073 BPM P-R Int : 198 ms QRS Dur : 094 ms QT Int : 424 ms P-R-T Axes : 064 -04 041 degrees QTc Int : 467 ms Normal sinus rhythm Inferior infarct , age undetermined Abnormal ECG When compared with ECG of 01-MAY-2017 09:19, No significant change was found Confirmed by DI GILBERT, TA ([id number]), film or videotape editor CUCA STANFORD ([id number]) on 09/01/2019 1:04:00 PM Referred By: Aleks Carlson Confirmed By:ANNABELLA SEVILLA MD
[2019-08-26 13:26] LABS: Bedside Glucose 141 mg/dL (70-110)
[2019-08-26 18:31] LABS: Bedside Glucose 137 mg/dL (70-110)
[2019-08-26] MEDS: Atenolol 25 MG Tablet PO (21:06)
[2019-08-26 21:16] LABS: Bedside Glucose 141 mg/dL (70-110)
[2019-08-27] VITALS (14 sets, daily range): BP systolic 104–156; BP diastolic 43–78; PULSE 59–73; RESP 14–28; TEMP 36.8–37.8; O2SAT 93–99; BMI 32.1
[2019-08-27 04:40] LABS: Hematocrit 30.9 % (40-54); Hemoglobin 10.5 g/dL (13.0-16.5); Mean Corpuscular Hgb 30.1 pg (27.0-32.0); Mean Corpuscular Volume 88.5 fL (80-94); Mean Platelet Vol. 10.6 fl (6.2-12.0); Platelet Count 122 K/mm3 (150-450); RBC Distribution Width CV 13.2 % (11.6-14.6); RBC Distribution Width SD 42.9 fl (35.1-43.9); Red Blood Count 3.49 M/mm3 (4.6-6.2); White Blood Count 5.8 K/mm3 (4.4-11.0)
[2019-08-27 04:59] LABS: AST(SGOT) 9 U/L (15-37); Alanine Aminotransfer ALT/SGPT 13 U/L (16-61); Albumin, Serum 2.5 g/dL (3.2-5.0); Alkaline Phosphatase 58 U/L (45-117); Anion Gap 5 (5-15); BUN 8 mg/dL (7-18); BUN/Creat Ratio 13.5 RATIO (10-20); Calcium,Total 6.4 mg/dL (8.5-10.1); Chloride 119 mmol/L (98-107); Creatinine, Serum 0.59 mg/dL (0.70-1.30); EST Glomerular Filtration Rate 144 mL/min (>60); Est Glom Filt Rate - Afr Amer 175 mL/min (>60); Estimated Creatinine Clearance 74.25 ml/min; Globulin 2.4 g/dL (2.2-4.2); Glucose 70 mg/dL (74-106); Protein, Total 4.9 g/dL (6.4-8.2); Sodium Level 147 mmol/L (136-145)
[2019-08-27 06:01] LABS: Bedside Glucose 84 mg/dL (70-110)
--- NOTE | 2019-08-27 07:44 | PN.CARD_ITS ---
Subjectve: Patient is awake and alert. He denies any ongoing issues of chest discomfort, difficulty breathing, dizziness/lightheadedness upon standing/ambulating in his room, or concerns of his cardiac catheterization site. He stated yesterday late afternoon he did have an episode of nausea and emesis. He has had no recurrent events. There is been no episodes of loose bowel movements. Objective: Vital Signs Temp Pulse Resp BP Pulse Ox 98.7 F 61 14 104/56 L 99 08/27/19 04:00 08/27/19 07:00 08/27/19 07:00 08/27/19 07:00 08/27/19 07:00 Oxygen Delivery Method Room Air Weight: 230 lb Body Mass Index (BMI) 32.1 Intake and Output for Last 24 Hours 08/25/19 08/26/19 08/27/19 23:59 23:59 23:59 Intake Total 1390 / 1390 200 / 200 Output Total 1100 / 1100 300 / 300 Balance 290 / 290 -100 / -100 General: Awake, Alert, Oriented x 3, Cooperative, No Acute Distress HEENT: Atraumatic, Normocephalic, PERRL, EOMI, Sclera Non Icteric Oral: Moist Mucosa Neck: Supple, Good ROM, No JVD Lungs: Clear to auscultation Cardiovascular: Regular Rhythm, Normal S1, Normal S2 Vascular: No Carotid Bruits, Normal Femoral Pulses Abdomen: Bowel Sounds Present, Soft, Non Tender Extremities: No edema Neurological: No Focal Motor or Sensory Deficit Psych/Mental Status: Appropriate 08/27/19 04:10: WBC 5.8, RBC 3.49 L, Hgb 10.5 L, Hct 30.9 L, MCV 88.5, MCH 30.1, MCHC 34.0, Plt Count 122 L, MPV 10.6 08/27/19 04:10: Sodium 147 H, Potassium 3.0 L, Chloride 119 H, Carbon Dioxide 23.0, Anion Gap 5, BUN 8, Creatinine 0.59 L, Est GFR (MDRD) Af Amer 175, Est GFR (MDRD) Non-Af 144, BUN/Creatinine Ratio 13.5, Glucose 70 L, Calcium 6.4 L*, Total Bilirubin 0.60 Rhythm: Sinus rhythm EKG: Sinus rhythm; inferior ND of indeterminate age cannot be excluded Medical Necessity - Tobacco Use Smoking Status: Current every day smoker Assessment/Plan 1. CAD status post PCI and CABG The patient recently underwent cardiovascular evaluation. This included an exercise tolerance test which was thought to be abnormal. He has now undergone repeat diagnostic cardiac catheterization. He was found to have progressive underlying quileute vessel disease in his LAD distal to his BAUM attachment and his OM distribution. His BAUM to the LAD was patent. His SVG to the RCA system was occluded. He is now status post PCI to the OM distribution. He is being staged for PCI to the LAD distribution. In the interim he will need to continue medical management. 2. Paroxysmal atrial fibrillation He appears to be remaining in sinus rhythm at this time. He will continue medical therapy. 3. Hyperlipidemia He will continue medical management. 4. Hypertension His blood pressure appears to be stable at this time. Will continue medical therapy. 5. Hypo-kalemia The potassium level is low. This may be secondary to his episode of emesis. At the present time he will receive potassium supplement and have his potassium level rechecked. Overall, the tentative plan, is that the patient remains symptomatically and hemodynamically stable, etc., for the patient to be released home for continued outpatient cardiovascular follow-up and staged PCI to the LAD. This note was generated using a voice recognition system and there may be incorrect words, spelling or punctuation that were not noted when reviewing the office note prior to saving.
[2019-08-27 08:13] LABS: Magnesium 1.1 mg/dL (1.6-2.6)
[2019-08-27] MEDS: Atenolol 25 MG Tablet PO (08:27)
[2019-08-27] MEDS: DULoxetine Hcl 30 MG Capsule PO (08:27)
[2019-08-27] MEDS: Aspirin E.C. 81 MG Tablet PO (08:27)
[2019-08-27] MEDS: Ramipril 10 MG Capsule PO (08:27)
[2019-08-27] MEDS: Atorvastatin Calcium 10 MG Tablet PO (08:27)
[2019-08-27] MEDS: Clopidogrel Bisulfate 75 MG Tablet PO (08:27)
--- NOTE | 2019-08-27 10:04 | DCINST_ITS ---
Discharge Diet: Low fat/ Low Cholesterol Discharge Activity: Return to Normal Activity May shower in (days): 1 - No tub baths for 5 days May resume sexual activity in: 1-2 weeks Lifting Restrictions: Do not lift anything greater than 10 pounds for 3 days Call your doctor if your incision/area has: Continuous Slow Oozing, Sudden Increased Bleeding, Increased Pain/ Swelling, Increased Redness, Foul Smelling Discharge, Swelling at the incision site Call your doctor if you observe: Fever of 101 or Higher, Shortness of breath, Chest pain Remove Dressing in (days):: 1 Cleanse incision/area with: Soap & Water Additional Instructions: You will continue with Aspirin and Plavix therapy. You will remain on Plavix therapy for at least 1 year. If anyone asks you to stop this medication, please call the [facility] first. You will be contacted in regards to date and time of staged intervention procedure. Please undergo laboratory work to evaluate potassium and magnesium level post discharge at your convenience. Please continue to hold Metformin until 08/30/2019. If you have any questions or concerns, please call the [facility]. Allergies/Adverse Reactions: Allergies rosuvastatin calcium [From Crestor] Allergy (Verified 07/15/19 08:38) Unknown Medications to take at Discharge Insulin Glargine [Lantus SoloStar Pen] 28 units SC QHS 03/01/15 Insulin Lispro [Humalog] 0 unit SQ TID 03/01/15 Nitroglycerin (INPATIENT USE) [Nitrostat] 0.4 mg SUBLINGUAL Q5M PRN 03/01/15 Duloxetine HCl 30 mg PO DAILY 04/30/17 Ergocalciferol [Vitamin D] 50,000 unit PO QWEEK 04/30/17 aspirin 81 mg tablet,delayed release 81 mg PO QDAY tab 11/16/17 dulaglutide 0.75 mg/0.5 mL subcutaneous pen injector 0.75 mg SC .COMPLEX 11/16/17 metformin 1,000 mg tablet 1,000 mg PO BID 11/16/17 atenolol 25 mg tablet 25 mg PO BID tab 12/31/17 ramipril 10 mg capsule 10 mg PO QDAY cap 12/31/17 testosterone 1.62 % (20.25 mg/1.25 gram) transdermal gel packet 2 packet TOPICAL QDAY g 12/31/17 atorvastatin 10 mg tablet 10 mg PO BID tab 01/06/19 clopidogrel 75 mg tablet 75 mg PO DAILY #90 tab 08/27/19 Primary Care Physician: Amy Heath DO [Primary Care Provider] - Test Results: Test results from this visit will be discussed in further detail at your follow- up appointment, if applicable. Please Follow Up With: You will be contacted by the [facility] Proposed Discharge Date: 08/27/19 Cardiac Rehabilitation Info Cardiac Rehabilitation Program Information: Cardiac Rehabilitation is important for patients like you who are recovering from a heart problem. Cardiac rehabilitation programs are recognized as integral to the continued care of the patient with coronary heart disease. The cardiac rehabilitation program is designed to optimize a patient's physical, psychological, and social functioning. Health healthcare sales representative work in cardiac rehabilitation programs and assist you with getting the treatments you need to get stronger and healthier - like exercise, healthy eating habits, and medications. Cardiac rehabilitation has been show to help people with heart problems live longer and have better life enjoyment than people who do not go to cardiac rehabilitation. Please contact the Cardiac Rehabilitation Program at [facility] at in two weeks if you have not heard from them.
--- NOTE | 2019-08-27 11:13 | CRPHASE1 ---
Patient Communication PHII Cardiac Rehab Discussed with Patient:: Yes Guide to Cardiac Rehab Given to Patient:: Yes Cardiac Rehab Facility Choice List Given to Patient:: Yes Choice Program [facility] PHII:: Communication Given to CR, Refer to [facility] Choice Program Other:: Communication Given to CR, With permission faxed order and referral information Legal Contracts Specialist:: Latrell Qureshi Sessions:: 36 sessions - 3 days/wk, 12 weeks - Patient would like to do his cardiac rehab in [place] Risk Factors/Lifestyle Smoking Status: Former smoker Hx Hypertension: Yes Hx Diabetes Mellitus Type 2: Yes - on meds Hx Dyslipidemia: Yes Hx Obesity: Yes Height: 1.8 m Weight:: 104.3 kg BMI: 32.1 ETOH: Yes Caffeine: Yes Substance Abuse: No Family History: Family History (Last Reviewed 07/15/19 @ 08:54 by TREVON Montanez) Father Atrial fibrillation Mother CAD (coronary artery disease) Family History: Diabetes, High Cholesterol, Heart Disease, Hypertension Past Cardiac Illness: Coronary Artery Disease Issues Affecting Care:: None Knowledge of Condition:: Yes Hospital Course Cardiac Cath Date:: 08/26/19 Medical/Surgical History PA:: No Angina:: Yes Pulmonary:: Yes SHAE:: Yes Diabetes Type II:: Yes Hypertension:: Yes Dyslipidemia:: Yes CABG: Yes Cardiac Rehabilitation Info Cardiac Rehabilitation Program Information: Cardiac Rehabilitation is important for patients like you who are recovering from a heart problem. Cardiac rehabilitation programs are recognized as integral to the continued care of the patient with coronary heart disease. The cardiac rehabilitation program is designed to optimize a patient's physical, psychological, and social functioning. Health acute care registered nurse work in cardiac rehabilitation programs and assist you with getting the treatments you need to get stronger and healthier - like exercise, healthy eating habits, and medications. Cardiac rehabilitation has been show to help people with heart problems live longer and have better life enjoyment than people who do not go to cardiac rehabilitation. Please contact the Cardiac Rehabilitation Program at [facility] at in two weeks if you have not heard from them.
--- NOTE | 2019-08-27 11:36 | CRPH1.INSTRU ---
General Education CAD and cardiac anatomy and function:: Patient communicates acknowledgment Explanation of diagnoses and procedures:: Patient communicates acknowledgment Sign/Symptoms of MA:: Not instructed Antiplatelet therapy: Not instructed Proper use of NTG-SL: Not instructed Emergency procedures and activation of EMS: Not instructed Compliance of all prescribed medications: Not instructed Smoking Patient Nicotine/Smoking Risk Factors Are:: Non-smoker - quit 30 yrs ago Dyslipidemia Recommendations Include:: Lipid profile not available Overweight/Obesity Patient Overweight/Obesity Risk Factors Are:: Overweight = 26-29 Overweight/Obesity:: Patient communicates acknowledgment Hypertension Recommendations Include:: Maintain BP <130/85 Hypertension:: Patient communicates acknowledgment - on meds Heart Disease Patient Heart Disease Risk Factors Are:: Family history of heart disease < 65 years old, Previous cardiac event Heart Disease Response Code:: Patient communicates acknowledgment Diabetes Diabetes:: Patient communicates acknowledgment Metabolic Syndrome Patient Metabolic Syndrome Risk Factors Are [3 of 5]:: Fasting blood sugar > 100 mg/dL, Hypertension Recommendations Include:: Patient is diabetic Metabolic Syndrome Response Code:: Patient communicates acknowledgment Sedentary Sedentary Response Code:: Patient communicates acknowledgment Stress Patient Stress Risk Factors Are:: Patient denies stress as a risk factor
[2019-08-27 12:05] LABS: Anion Gap 6 (5-15); BUN 14 mg/dL (7-18); BUN/Creat Ratio 15.9 RATIO (10-20); Calcium,Total 8.5 mg/dL (8.5-10.1); Chloride 106 mmol/L (98-107); Creatinine, Serum 0.88 mg/dL (0.70-1.30); EST Glomerular Filtration Rate 91 mL/min (>60); Est Glom Filt Rate - Afr Amer 110 mL/min (>60); Glucose 190 mg/dL (74-106); Magnesium 2.2 mg/dL (1.6-2.6); Potassium 4.3 mmol/L (3.5-5.1); Sodium Level 139 mmol/L (136-145)
--- NOTE | 2019-08-27 12:48 | EKG12_ITS ---
Test Reason : AM Blood Pressure : / mmHG Vent. Rate : 062 BPM Atrial Rate : 062 BPM P-R Int : 190 ms QRS Dur : 090 ms QT Int : 450 ms P-R-T Axes : 063 -09 040 degrees QTc Int : 456 ms Normal sinus rhythm Inferior infarct , age undetermined Abnormal ECG When compared with ECG of 26-AUG-2019 12:27, MANUAL COMPARISON REQUIRED, DATA IS UNCONFIRMED Confirmed by DI GILBERT, TA ([id number]), magazine editor CUCA STANFORD ([id number]) on 09/01/2019 1:06:42 PM Referred By: Aleks Carlson Confirmed By:ANNABELLA SEVILLA MD
--- NOTE | 2019-08-27 13:59 | DS.PCM_ITS ---
Discharge Date and Diagnosis Date of Admission: 08/26/19 Date of Discharge: 08/27/19 - Primary Discharge Diagnosis CAD; abnormal stress nuclear imaging study; status post PCI; status post CABG; for diagnostic cardiac catheterization - Secondary Discharge Diagnosis Chronic Problems (Last Updated 07/15/19 @ 08:54 by TREVON Montanez) History of coronary artery bypass surgery (Chronic ~03/09/15) CABG x 2- BAUM to LAD, RSVG to RPDA 03/09/15 PVD (peripheral vascular disease) (Chronic) Essential hypertension (Chronic) Type 2 diabetes mellitus (Chronic) Hyperlipidemia (Chronic) Presence of stent in coronary artery (Chronic ~04/28/99) PTCA/Stent to prox LAD 04/28/99; Atherosclerotic heart disease of [place] coronary artery without angina pectoris (Chronic) PTCA/Stent to prox LAD 04/28/99; CABG x 2- BAUM to LAD, RSVG to RPDA 03/09/15 Paroxysmal atrial fibrillation (Chronic) Hospital Course and Treatment Procedures: Cardiac catheterization, - - Cardiac intervention/PCI Summary of Care Provided: The patient is a 68 year old white male with a history of underlying CAD, status post PCI, status post CABG, who presents for concerning abnormal stress nuclear imaging study for repeat diagnostic cardiac catheterization. Repeat diagnostic cardiac catheterization demonstrated progressive [place] vessel and graft vessel disease with progression of LAD disease, OM disease, and SVG to the RCA occlusion. The patient subsequently underwent a staged procedure with stage I being a PCI to the OM. The plan is for a future staged procedure to the [place] LAD via the BAUM graft. The patient was monitored in the ICU overnight. He appeared to be symptomatically and hemodynamically stable. Status post review of his case, correction of his electrolytes, it was thought the patient was stable for release home today for continued outpatient follow-up. [] Subjective: The patient is awake and alert and in no acute distress. - Physical Exam Vitals/I&O's: Vital Signs Temp Pulse Resp BP Pulse Ox 98.3 F 61 18 124/51 H 98 08/27/19 12:00 08/27/19 12:00 08/27/19 12:00 08/27/19 12:00 08/27/19 12:00 Oxygen Delivery Method Room Air Weight: 229 lb 15.074 oz Body Mass Index (BMI) 32.1 Intake and Output for Last 24 Hours 08/25/19 08/26/19 08/27/19 23:59 23:59 23:59 Intake Total 1390 / 1390 554 / 554 Output Total 1100 / 1100 700 / 700 Balance 290 / 290 -146 / -146 General: Alert, Oriented x3, Cooperative, No apparent distress HEENT: Atraumatic, PERRLA, EOMI, Normocephalic Oral: Moist Mucosa Neck: Supple, No JVD Lungs: Clear to auscultation Cardiovascular: Regular rate, Normal S1, Normal S2 Abdomen: Bowel Sounds Present, Soft, Non Tender Extremities: No clubbing, No cyanosis, No edema Neurological: Neuro grossly intact Psych/Mental Status: Normal Affect Comment: Cardiac catheterization site: Pulse 2+/4+; no bruit; no hematoma Laboratory Results 08/26/19 18:23: POC Glucose 137 H 08/26/19 21:05: POC Glucose 141 H 08/27/19 04:10: WBC 5.8, RBC 3.49 L, Hgb 10.5 L, Hct 30.9 L, MCV 88.5, MCH 30.1, MCHC 34.0, RDW Std Deviation 42.9, RDW Coeff of Karlo 13.2, Plt Count 122 L, MPV 10.6 08/27/19 04:10: Sodium 147 H, Potassium 3.0 L, Chloride 119 H, Carbon Dioxide 23.0, Anion Gap 5, BUN 8, Creatinine 0.59 L, Estim Creat Clear Calc 74.25, Est GFR (MDRD) Af Amer 175, Est GFR (MDRD) Non-Af 144, BUN/Creatinine Ratio 13.5, Glucose 70 L, Calcium 6.4 L*, Total Bilirubin 0.60, AST 9 L, ALT 13 L, Alkaline Phosphatase 58, Total Protein 4.9 L, Albumin 2.5 L, Globulin 2.4, Albumin/Globulin Ratio 1.0 08/27/19 04:10: Magnesium 1.1 L 08/27/19 05:56: POC Glucose 84 08/27/19 11:45: Sodium 139, Potassium 4.3, Chloride 106, Carbon Dioxide 27.0, Anion Gap 6, BUN 14, Creatinine 0.88, Estim Creat Clear Calc 81.80, Est GFR (MDRD) Af Amer 110, Est GFR (MDRD) Non-Af 91, BUN/Creatinine Ratio 15.9, Glucose 190 H, Calcium 8.5, Magnesium 2.2 Discharge Diet: Low fat/ Low Cholesterol Discharge Activity: Return to Normal Activity May shower in (days): 1 - No tub baths for 5 days May resume sexual activity in: 1-2 weeks Call your doctor if your incision/area has: Continuous Slow Oozing, Sudden Increased Bleeding, Increased Pain/ Swelling, Increased Redness, Foul Smelling Discharge, Swelling at the incision site Call your doctor if you observe: Fever of 101 or Higher, Shortness of breath, Chest pain Remove Dressing in (days):: 1 Cleanse incision/area with: Soap & Water Home Medications: Medications to take at Discharge Insulin Glargine [Lantus SoloStar Pen] 28 units SC QHS 03/01/15 Insulin Lispro [Humalog] 0 unit SQ TID 03/01/15 Nitroglycerin (INPATIENT USE) [Nitrostat] 0.4 mg SUBLINGUAL Q5M PRN 03/01/15 Duloxetine HCl 30 mg PO DAILY 04/30/17 Ergocalciferol [Vitamin D] 50,000 unit PO QWEEK 04/30/17 aspirin 81 mg tablet,delayed release 81 mg PO QDAY tab 11/16/17 dulaglutide 0.75 mg/0.5 mL subcutaneous pen injector 0.75 mg SC .COMPLEX 11/16/17 metformin 1,000 mg tablet 1,000 mg PO BID 11/16/17 atenolol 25 mg tablet 25 mg PO BID tab 12/31/17 ramipril 10 mg capsule 10 mg PO QDAY cap 12/31/17 testosterone 1.62 % (20.25 mg/1.25 gram) transdermal gel packet 2 packet TOPICAL QDAY g 12/31/17 atorvastatin 10 mg tablet 10 mg PO BID tab 01/06/19 clopidogrel 75 mg tablet 75 mg PO DAILY #90 tab 08/27/19 Primary Care Physician: Amy Heath DO [Primary Care Provider] - Please Follow Up With: You will be contacted by the [facility] Additional Instructions: You will continue with Aspirin and Plavix therapy. You will remain on Plavix therapy for at least 1 year. If anyone asks you to stop this medication, please call the [facility] first. You will be contacted in regards to date and time of staged intervention procedure. Please undergo laboratory work to evaluate potassium and magnesium level post discharge at your convenience. Please continue to hold Metformin until 08/30/2019. If you have any questions or concerns, please call the [facility]. Disposition: Home Minutes spent on discharge:: 45 Patient Condition:: Stable Medical Necessity - Tobacco Use Smoking Status: Former smoker Meaningful Use Info Meaningful Use Diagnoses (Choose all that apply): None applicable
== END 2019-08-27 13:26 | disposition home or self-care (01) ==
LOC: CLSP 08:55 → ICU 12:00
PROVIDERS: Internal Medicine Cardiovascular Disease; Family Provider Internal Medicine; PCP Internal Medicine; Referring Provider Internal Medicine Cardiovascular Disease; Visit Provider Internal Medicine Cardiovascular Disease
DX: I25.10 Atherosclerotic heart disease of native coronary artery without angina pectoris (principal); I48.0 Paroxysmal atrial fibrillation; I11.0 Hypertensive heart disease with heart failure; I50.20 Unspecified systolic (congestive) heart failure; E87.6 Hypokalemia; I73.9 Peripheral vascular disease, unspecified; E78.5 Hyperlipidemia, unspecified; E11.9 Type 2 diabetes mellitus without complications; G47.33 Obstructive sleep apnea (adult) (pediatric); Z95.1 Presence of aortocoronary bypass graft; Z95.5 Presence of coronary angioplasty implant and graft; Z79.82 Long term (current) use of aspirin; Z79.4 Long term (current) use of insulin; Z79.899 Other long term (current) drug therapy; Z87.891 Personal history of nicotine dependence
CPT/HCPCS: 36415; 71046; 80048; 80053; 82962; 83735; 85027; 85347; 85610; 85730; 92928; 93005; 93459; 99152; 99153; J7030; J7040; Q9967; C1725; C1769; C1874; C1887; C1894; C9600

== ENCOUNTER 2019-09-17 08:58 | Day surgery (SDC) | payer MEDICARE, OTHER, SELFPAY ==
[2019-08-26 13:02] VITALS: BMI 32.1
[2019-08-27 11:35] VITALS: BMI 32.1
[2019-09-02 09:54] LABS: Prothrombin Time (Protime)PT. 13.1 SECONDS (11.7-14.9)
[2019-09-02 09:55] LABS: Partial Thromboplast Time 27.6 Seconds (24.1-36.2)
[2019-09-02 10:24] LABS: Anion Gap 8 (5-15); BUN 21 mg/dL (7-18); BUN/Creat Ratio 19.3 RATIO (10-20); Calcium,Total 9.5 mg/dL (8.5-10.1); Chloride 103 mmol/L (98-107); Creatinine, Serum 1.09 mg/dL (0.70-1.30); EST Glomerular Filtration Rate 71 mL/min (>60); Est Glom Filt Rate - Afr Amer 86 mL/min (>60); Glucose 247 mg/dL (74-106); Magnesium 1.5 mg/dL (1.6-2.6); Potassium 3.9 mmol/L (3.5-5.1); Sodium Level 138 mmol/L (136-145)
[2019-09-16 07:38] VITALS: BMI 31.9
[2019-09-17] VITALS (16 sets, daily range): BP systolic 114–145; BP diastolic 47–108; PULSE 66–85; RESP 13–23; TEMP 36.6–37.2; O2SAT 93–99; BMI 32.0
[2019-09-17 12:15] LABS: ACT Activated Clotting Time 175 sec (74-137)
--- NOTE | 2019-09-17 12:46 | CL.I_ITS ---
Patient Name: MAYI BRANDT Study Date: 09/17/2019 Performing: Latrell Qureshi MD Ht: 70.86 inches 180 cm : 1950 Wt: 229.28 lbs 104 kg Age: 68 Gender: male BSA: 2.23 PROCEDURE(S) PERFORMED [id number] W OR WO PTCA, SINGLE CORONARY ARTERY CLINICAL PROFILE AND CO-MORBIDITIES Indications: Stable Known CAD, LV Dysfunction Heart Failure: NYHA Class: 1, Newly Diagnosed: No, Heart Failure Type: Systolic Stress/Imaging Date: 07/29/2019 Stress Test with SPECT MPI: Positive Low Risk Angina Classification Anginal Classification w/in 2 Weeks: CCS II CAD Presentations: Other: Dyspnea on exertion Unstable angina. Comorbidities/Risk Factors: Hypertension Dyslipidemia Prior PCI CONCLUSIONS Successful PTCA/LINDSEY mid LAD via the BAUM to the LAD, utilizing a 2.25 x 32 Promus Synergy, post dilat ed throughout with a 2.25 x 12 NC Balloon; 85%-->0%, no dissection. RECOMMENDATIONS Highly recommend quitting all tobacco products Follow up with primary field sales manager Risk factor modification ASA Indefinitley Plavix for at least 12 months Routine post interventional care Refer for Outpatient Cardiac Rehab Manual sheath removal per protocol Follow up with Dr. Carlson Unable to Mynx close RFA. DESCRIPTION OF PROCEDURE The patient arrived to the procedure lab. The risks and benefits of the procedure as well as a full d escription of our services here and current unavailability of surgical backup were fully explained to the patient and/or their significant other prior to the catheterization. The Timeout was completed, verifying the correct patient and procedure. The patient's procedural site was prepped and draped in the usual fashion. Local anesthetic was given subcutaneously to right groin region with Lidocaine 2%. Using a modified Seldinger technique, arterial access was obtained via the right femoral artery, a 6 Fr sheath was inserted.. 6fr DUNCAN Guide catheter was inserted and engaged into the LCA. BMW Guide wire was advanced to the LAD. Emerge 2.00x12 Balloon catheter was inserted. PTCA balloon inflated at 6 atms for 12 secs. PTCA balloon inflated at 7 atms for 16 secs. PTCA balloon inflated at 6 atms for 8 secs. PTCA balloon infl ated at 8 atms for 12 secs. Angiogram performed post balloon dilatation. Synergy 2.25x28 Drug Eluting stent was inserted. Drug Eluting stent was removed intact, failed to cross lesion Emerge 2.00x12 Bal loon catheter was inserted. PTCA balloon inflated at 8 atms for 7 secs. PTCA balloon inflated at 8 at ms for 8 secs. PTCA balloon inflated at 10 atms for 22 secs. PTCA balloon inflated at 10 atms for 8 s ecs. PTCA balloon inflated at 10 atms for 8 secs. Angiogram performed post balloon dilatation. Synerg y 2.25x28 Drug Eluting stent was inserted. Angiogram performed post stent deployment. NC Emerge 2.25x 12 Balloon catheter was inserted. PTCA balloon inflated at 16 atms for 12 secs. PTCA balloon inflated at 16 atms for 10 secs. PTCA balloon inflated at 16 atms for 13 secs. PTCA balloon i nflated at 16 atms for 12 secs. PTCA balloon inflated at 16 atms for 9 secs. Angiogram performed post balloon dilatation. Contrast was injected through the sheath and the Right Iliac and Femoral artery were assessed for possible closure device. The arterial sheath was pulled and manual compression appl ied until hemostasis is achieved. INTERVENTION INFORMATION LESION SITE: BAUM > to LAD (Mid) Segment Number: 13-Mid-LAD artery segment - mLAD , Lesion Location : Not in Graft > [place] vessel (mid) Lesion Complexity: High/C, lesion at bifurcation: No, thrombus present: No, lesion length: 32 mm, cul prit lesion: Yes Pre Stenosis: 85 % Pre intervention FEDERICO flow: 3 PROCEDURE: Drug Eluting Stent with pre and post dilatation Post Stenosis: 0 % Post intervention FEDERICO flow: 3 Lesion Devices: Hensley .014 BMW Koppel Straight 190cm Medtronic 6 Fr DUNCAN 90cm Guide Catheter Tanvir Sci EMERGE MR 2.00x12 BALLOON Tanvir Sci Synergy MR LINDSEY 2.25x28 Tanvir Sci NC EMERGE MR 2.25x12 BALLOON COMPLICATIONS No Complications PROCEDURE MEDICATIONS Oxygen: 2 L/min via nasal cannula Heparin 6000 unit(s) IV 09/17/2019 10:54:44 Nitro 200 mcg IC 09/17/2019 10:56:41 Nitro 200 mcg IC 09/17/2019 10:56:41 Nitro 200 mcg IC 09/17/2019 11:04:10 Nitro 200 mcg IC 09/17/2019 11:13:19 IV Bolus: .9 NaCl 250 ml total 09/17/2019 10:54:53 SUMMARY OF HEMODYNAMIC DATA Time AIR REST ECG 09:12:10 ECG 09:16:07 AO 133/52 (81) SA 10:55:38 Signed By Latrell Qureshi MD On 09/17/2019 12:45:25 PM Latrell Qureshi MD
--- NOTE | 2019-09-17 15:17 | EKG12_ITS ---
Test Reason : AM Blood Pressure : / mmHG Vent. Rate : 064 BPM Atrial Rate : 064 BPM P-R Int : 198 ms QRS Dur : 096 ms QT Int : 428 ms P-R-T Axes : 057 -03 037 degrees QTc Int : 441 ms Normal sinus rhythm Inferior infarct , age undetermined Abnormal ECG When compared with ECG of 17-SEP-2019 12:18, MANUAL COMPARISON REQUIRED, DATA IS UNCONFIRMED Confirmed by DI GILBERT, TA ([id number]), editor map COURTNEY MOLINA ([id number]) on 09/19/2019 1:23:58 PM Referred By: Latrell Qureshi Confirmed By:ANNABELLA SEVILLA MD
--- NOTE | 2019-09-17 15:45 | CRPHASE1_ITS ---
Patient Communication Former Patient:: Phase I - pt seen 08/27/19 PHII Cardiac Rehab Discussed with Patient:: Yes Guide to Cardiac Rehab Given to Patient:: Yes Cardiac Rehab Facility Choice List Given to Patient:: Yes - [facility] Choice Program [facility] PHII:: Communication Given to CR, Refer to [facility] Milk Pickup Driver:: Latrell Qureshi Refer Phase II Cardiac Rehab:: Yes Sessions:: 36 sessions - 3 days/wk, 12 weeks Risk Factors/Lifestyle Family History: Family History (Last Reviewed 07/15/19 @ 08:54 by TREVON Montanez) Father Atrial fibrillation Mother CAD (coronary artery disease) Cardiac Rehabilitation Info Cardiac Rehabilitation Program Information: Cardiac Rehabilitation is important for patients like you who are recovering from a heart problem. Cardiac rehabilitation programs are recognized as integral to the continued care of the patient with coronary heart disease. The cardiac rehabilitation program is designed to optimize a patient's physical, psychological, and social functioning. Health ca re professionals work in cardiac rehabilitation programs and assist you with getting the treatments you need to get stronger and healthier - like exercise, healthy eating habits, and medications. Cardiac rehabilitation has been show to help people with heart problems live longer and have better life enjoyment than people who do not go to cardiac rehabilitation. Please contact the Cardiac Rehabilitation Program at [facility] at in two weeks if you have not heard from them.
--- NOTE | 2019-09-17 15:47 | CRPH1.INSTRU ---
General Education CAD and cardiac anatomy and function:: Patient communicates acknowledgment, Not instructed Explanation of diagnoses and procedures:: Patient communicates acknowledgment, Not instructed Sign/Symptoms of [place]:: Patient communicates acknowledgment, Not instructed Antiplatelet therapy: Patient communicates acknowledgment, Not instructed Proper use of NTG-SL: Patient communicates acknowledgment, Not instructed Emergency procedures and activation of EMS: Patient communicates acknowledgment, Not instructed Compliance of all prescribed medications: Patient communicates acknowledgment, Not instructed - patient seen on 08/27/19 with booklet given
[2019-09-17] MEDS: 0.9% Normal Saline 1,000 ML 150 ML IV (16:21)
[2019-09-17] MEDS: Acetaminophen 325 MG Tablet 650 MG PO (16:31)
[2019-09-17] MEDS: Magnesium Oxide 400 MG Tablet PO (17:24)
[2019-09-17 17:25] LABS: Bedside Glucose 185 mg/dL (70-110)
[2019-09-17] MEDS: Insulin Lispro 100 UNIT/ML INSULN.PEN SC ×2 (17:56→21:16)
[2019-09-17] MEDS: Atorvastatin Calcium 10 MG Tablet PO (21:17)
[2019-09-17] MEDS: Atenolol 25 MG Tablet PO (21:17)
[2019-09-17 21:26] LABS: Bedside Glucose 327 mg/dL (70-110)
[2019-09-18] VITALS (13 sets, daily range): BP systolic 126–155; BP diastolic 58–85; PULSE 64–72; RESP 13–25; TEMP 36.4–36.8; O2SAT 96–100
[2019-09-18 04:11] LABS: Hematocrit 35.9 % (40-54); Hemoglobin 12.1 g/dL (13.0-16.5); Mean Corp Hgb Conc 33.7 g/dL (32-36); Mean Corpuscular Volume 86.1 fL (80-94); Platelet Count 128 K/mm3 (150-450); RBC Distribution Width CV 13.4 % (11.6-14.6); RBC Distribution Width SD 41.5 fl (35.1-43.9); Red Blood Count 4.17 M/mm3 (4.6-6.2); White Blood Count 6.2 K/mm3 (4.4-11.0)
[2019-09-18 05:11] LABS: AST(SGOT) 18 U/L (15-37); Alanine Aminotransfer ALT/SGPT 31 U/L (16-61); Albumin, Serum 3.2 g/dL (3.2-5.0); Alkaline Phosphatase 80 U/L (45-117); Anion Gap 5 (5-15); BUN 12 mg/dL (7-18); BUN/Creat Ratio 14.9 RATIO (10-20); Calcium,Total 7.9 mg/dL (8.5-10.1); Chloride 109 mmol/L (98-107); Creatinine, Serum 0.81 mg/dL (0.70-1.30); EST Glomerular Filtration Rate 101 mL/min (>60); Est Glom Filt Rate - Afr Amer 122 mL/min (>60); Estimated Creatinine Clearance 91.67 ml/min; Globulin 3.3 g/dL (2.2-4.2); Glucose 172 mg/dL (74-106); Potassium 3.8 mmol/L (3.5-5.1); Protein, Total 6.5 g/dL (6.4-8.2); Sodium Level 140 mmol/L (136-145)
[2019-09-18 07:01] LABS: Bedside Glucose 151 mg/dL (70-110)
[2019-09-18] MEDS: Insulin Lispro 100 UNIT/ML INSULN.PEN SC (07:55)
[2019-09-18] MEDS: Magnesium Oxide 400 MG Tablet PO (07:56)
--- NOTE | 2019-09-18 08:16 | PCM.PN.CARD ---
Subjectve: Patient seen and examined, doing very well. No 24-hour events. Right groin is clean/dry/intact without evidence of thrills, bruits or hematoma. No chest pain overnight. Telemetry shows normal sinus rhythm with rare PVC, hemoglobin and creatinine are within nominal limits. EKG shows normal sinus rhythm with old inferior wall myocardial infarction, no acute changes. Objective: Vital Signs Temp Pulse Resp BP Pulse Ox 98.2 F 69 25 H 130/58 H 99 09/18/19 04:00 09/18/19 07:40 09/18/19 07:00 09/18/19 07:00 09/18/19 07:00 Oxygen Delivery Method Room Air Weight: 225 lb 15.581 oz Body Mass Index (BMI) 32.0 Intake and Output for Last 24 Hours 09/16/19 09/17/19 09/18/19 23:59 23:59 23:59 Intake Total 1000.0 / 1440.0 580 / 580 Output Total 300 / 900 1100 / 1100 Balance 700.0 / 540.0 -520 / -520 General: Awake, Alert, Oriented x 3 HEENT: PERRL, EOMI, Sclera Non Icteric Neck: Supple, Good ROM, No Lymph Node Enlargement Lungs: Clear to auscultation Cardiovascular: Regular Rhythm, Normal S1, Normal S2, No Murmurs, No Rubs, No Gallops Vascular: No Carotid Bruits, Normal Femoral Pulses, Normal Radial Pulses, Normal Dorsalis Pedal Pulse, Normal Posterior Tibial Pulses Abdomen: Bowel Sounds Present, Soft, Non Tender, No HSM, No Organomegaly Extremities: No Cyanosis, No Clubbing, No edema Neurological: No Focal Motor or Sensory Deficit 09/18/19 03:55: WBC 6.2, RBC 4.17 L, Hgb 12.1 L, Hct 35.9 L, MCV 86.1, MCH 29.0, MCHC 33.7, Plt Count 128 L, MPV 10.0 09/18/19 03:55: Sodium 140, Potassium 3.8, Chloride 109 H, Carbon Dioxide 26.0, Anion Gap 5, BUN 12, Creatinine 0.81, Est GFR (MDRD) Af Amer 122, Est GFR (MDRD) Non-Af 101, BUN/Creatinine Ratio 14.9, Glucose 172 H, Calcium 7.9 L, Total Bilirubin 0.60 Rhythm: EKG: ECHO: Stress Test: Cardiac Cath: PCI: CT Surgery: Holter monitor: EPS: PPM: CXR: Chest CT Scan: Medical Necessity - Tobacco Use Smoking Status: Former smoker Tobacco Use: Non-smoker Assessment/Plan 1. Coronary artery disease: Patient did very well overnight, no chest pain symptoms. Patient did experience some angina while we were intervening [place] his [place] through the [place]. His right groin is clean/dry/intact. Recommend the patient be discharged home on aspirin, Plavix, atenolol, and ramipril. Patient be enrolled in cardiac rehab going forward and follow-up with Dr. Cici landers going forward. 2. Hyperlipidemia: Continue statin based medication, and repeat lipid profile after cardiac rehab. 3. Patient will be discharged home. Code Visit Inpatient E&M: 54919 Subs Hosp L2
[2019-09-18] MEDS: Clopidogrel Bisulfate 75 MG Tablet PO (09:22)
[2019-09-18] MEDS: Atenolol 25 MG Tablet PO (09:22)
[2019-09-18] MEDS: Ramipril 10 MG Capsule PO (09:22)
[2019-09-18] MEDS: Atorvastatin Calcium 10 MG Tablet PO (09:22)
[2019-09-18] MEDS: Aspirin E.C. 81 MG Tablet PO (09:22)
[2019-09-18] MEDS: DULoxetine Hcl 30 MG Capsule PO (09:22)
--- NOTE | 2019-09-18 09:36 | PCM.DC.CCA ---
Discharge Diet: Low fat/ Low Cholesterol Discharge Activity: Return to Normal Activity May shower in (days): 1 Lifting Restrictions: 10 pounds and also avoid any pushing or pulling for 3 days after your test. Call your doctor if your incision/area has: Continuous Slow Oozing, Sudden Increased Bleeding, Increased Pain/ Swelling, Increased Redness, Foul Smelling Discharge, Swelling at the incision site Call your doctor if you observe: Fever of 101 or Higher, Shortness of breath, Chest pain Remove Dressing in (days):: 1 Cleanse incision/area with: Soap & Water Additional Dressing/Incision Instructions:: Keep the dressing (bandage) on until the next morning. You may then shower, but do not take a tub bath for 5 days after your test. It is normal to have some tenderness and discomfort at the puncture site. Sometimes bruising also occurs. However, if pain, numbness, or coldness occurs below the puncture site (in your leg, toes, arms or fingers) call your doctor at once. You may have a small, marble sized knot at the puncture site. This is normal. Do not rub it. It will go away in 4-6 weeks. Bleeding can occur from the area where the puncture was done. Blood may spurt or drip from the site. If blood spurts, apply pressure right away to stop bleeding and call 911. Although rare, bleeding into the tissue (hematoma) can also occur. If this happens, a large, firm area goose egg under the skin will appear. If any of these occur, lie down as flat as you can and have someone apply firm pressure to the cath site with a gauze pad or a clean washcloth for 10-15 minutes. Call 911 or go to the Emergency Department. Allergies/Adverse Reactions: Allergies rosuvastatin calcium [From Crestor] Allergy (Verified 07/15/19 08:38) Unknown Medications to take at Discharge Insulin Glargine [Lantus SoloStar Pen] 28 units SC QHS 03/01/15 Insulin Lispro [Humalog] 0 unit SQ TID 03/01/15 Nitroglycerin (INPATIENT USE) [Nitrostat] 0.4 mg SUBLINGUAL Q5M PRN 03/01/15 Duloxetine HCl 30 mg PO DAILY 04/30/17 Ergocalciferol [Vitamin D] 50,000 unit PO QWEEK 04/30/17 aspirin 81 mg tablet,delayed release 81 mg PO QDAY tab 11/16/17 dulaglutide 0.75 mg/0.5 mL subcutaneous pen injector 0.75 mg SC QWEEK 11/16/17 metformin 1,000 mg tablet 1,000 mg PO BID 11/16/17 atenolol 25 mg tablet 25 mg PO BID tab 12/31/17 ramipril 10 mg capsule 10 mg PO QDAY cap 12/31/17 atorvastatin 10 mg tablet 10 mg PO BID tab 01/06/19 clopidogrel 75 mg tablet 75 mg PO DAILY #90 tab 08/27/19 magnesium oxide 400 mg PO DAILY #30 tab 09/02/19 Orders to be completed after discharge: Phase II, Outpatient Cardiac Rehab Location: None Selected Primary Care Physician: Amy Heath DO [Primary Care Provider] - Please follow up with your Primary Care Physician in: 4 weeks Test Results: Test results from this visit will be discussed in further detail at your follow-up appointment, if applicable. Please Follow Up With: Shanta Flores PA When: 10/03/2019 1430 Cardiac Rehabilitation Info Cardiac Rehabilitation Program Information: Cardiac Rehabilitation is important for patients like you who are recovering from a heart problem. Cardiac rehabilitation programs are recognized as integral to the continued care of the patient with coronary heart disease. The cardiac rehabilitation program is designed to optimize a patient's physical, psychological, and social functioning. Health foster care social worker work in cardiac rehabilitation programs and assist you with getting the treatments you need to get stronger and healthier - like exercise, healthy eating habits, and medications. Cardiac rehabilitation has been show to help people with heart problems live longer and have better life enjoyment than people who do not go to cardiac rehabilitation. Please contact the Cardiac Rehabilitation Program at [facility] at in two weeks if you have not heard from them.
== END 2019-09-18 10:10 | disposition home or self-care (01) ==
LOC: CLSP 08:59 → ICU 09-18 10:29
PROVIDERS: Internal Medicine Cardiovascular Disease; Nurse Practitioner Family; Family Provider Internal Medicine; PCP Internal Medicine; Referring Provider Internal Medicine Cardiovascular Disease; Visit Provider Internal Medicine Cardiovascular Disease
DX: I25.110 Atherosclerotic heart disease of native coronary artery with unstable angina pectoris (principal); I48.0 Paroxysmal atrial fibrillation; I10 Essential (primary) hypertension; E78.5 Hyperlipidemia, unspecified; G47.33 Obstructive sleep apnea (adult) (pediatric); E11.51 Type 2 diabetes mellitus with diabetic peripheral angiopathy without gangrene; Z95.1 Presence of aortocoronary bypass graft; Z95.5 Presence of coronary angioplasty implant and graft; Z79.4 Long term (current) use of insulin; Z79.82 Long term (current) use of aspirin; Z79.899 Other long term (current) drug therapy; Z87.891 Personal history of nicotine dependence
CPT/HCPCS: 80048; 80053; 82962; 83735; 85027; 85347; 85610; 85730; 92928; 93005; J7030; J7040; Q9967; C1725; C1769; C1874; C1887; C9600

== ENCOUNTER → 2020-03-08 07:36 | Outpatient (CLI) | payer MEDICARE, OTHER, SELFPAY ==
[2019-08-27 11:35] VITALS: BMI 32.1
[2020-01-16 12:18] VITALS: BMI 32.2
--- NOTE | 2020-03-08 08:15 | US_ITS ---
STUDY: ABDOMINAL ULTRASOUND REASON FOR EXAM: Male, 69 years old. FATTY LIVER TECHNIQUE: Transabdominal ultrasound was performed with real-time and static barragan scale imaging. TECHNICAL QUALITY: Limited. Examination limited by bowel gas. COMPARISON: Comparison is made with prior examination dated February 12, 2019. FINDINGS: Liver: The liver measures 14 cm. There is increased echogenicity consistent with fatty infiltration. The bile ducts are within normal limits. There is hepatic color flow. The direction of portal flow is hepatopetal. There is no demonstrated mass lesion. Portal vein measurement: Gallbladder: The patient is status post cholecystectomy. Common Bile Duct (C.B.D.): The common bile duct measures 4 mm. Pancreas: Normal size of the head, body and tail of the pancreas. There is increased echogenicity of the pancreas. There is no demonstrated pancreatic mass or cyst. Spleen: Normal size of the spleen. The spleen measures 12 cm x 5.3 cm x 5.1 cm. Right Kidney: Normal size of the right kidney. The right kidney measures 11.2 cm x 6.1 cm x 6.4 cm. Normal renal cortex. The right cortex measures 1.9 cm. There is no demonstrated renal mass or cyst. There is no right hydronephrosis. Left Kidney: Normal size of the left kidney. The left kidney measures 11.9 cm x 5.9 cm x 6.3 cm. Normal renal cortex. The left cortex measures 2.2 cm. There is no demonstrated renal mass or cyst. There is no left hydronephrosis. Aorta: Unremarkable. I.V.C.: The IVC is patent. There is no ascites. US/Abdomen Complete IMPRESSION: Fatty infiltration of the liver. Electronically Signed: Romaine Hart, at 15:02 EDT , Service support ,
== END ==
PROVIDERS: PCP Internal Medicine; Referring Provider Internal Medicine; Visit Provider Internal Medicine
DX: K76.0 Fatty (change of) liver, not elsewhere classified (principal)
CPT/HCPCS: 76700

== ENCOUNTER 2020-08-25 06:22 | Day surgery (SDC) | payer MEDICARE, OTHER, SELFPAY ==
[2019-08-27 11:35] VITALS: BMI 32.1
[2020-07-05 10:33] VITALS: BMI 32.5
--- NOTE | 2020-08-25 | COLBX_PTH ---
PATIENT: MAYI BRANDT LOC: EN U#:[id number] AGE/SX: 69/M ROOM: RE08/25/[address]: Dr. Latrell Oakes MD : 1950 BED: DIS: 08/25/2020 SPEC #: [id number] RECD: 08/25/20 12:56 STATUS: JENNI RETito #: [id number] SOLE: 08/25/20 00:[address]: Latrell Oakes DEPT: SURGICAL PATHOLOGY RECD BY: Remington Restrepo ENTERED: 08/25/20 12:56 SP TYPE: COLON BX OTHR DR: Dr. Amy Heath, DO Tissues: Rectum, NOS Procedures: Surgery Specimen Level IV HEADER OPERATION: Colonoscopy (MAC) PRE-OP DIAGNOSIS: Positive colorectal cancer screening using Cologuard TISSUE SUBMITTED: Rectum polyp biopsy MICROSCOPIC DIAGNOSIS Rectal polyp, biopsy: Fragment of benign colonic mucosa. See comment. AM:shahida 12/17/20 COMMENT Neither hyperplastic nor adenomatous change is identified. Clinical correlation is suggested. MICROSCOPIC DESCRIPTION Slides are reviewed. GROSS DESCRIPTION Received in fixative is one container labeled with the patient's name and designated rectal polyp biopsy. The specimen consists of one irregular fragment of light hines soft tissue that measures 0.2 x 0.2 x 0.1 cm. The specimen is totally submitted in one cassette. / AM:shahida 08/25/20 TC:5 CPT: 80043
[2020-08-25 06:43] VITALS: PULSE 67; RESP 16; TEMP 37.1; O2SAT 97; BMI 31.4
[2020-08-25] MEDS: Lactated Ringers 1,000 ML 100 ML IV (07:00)
[2020-08-25 07:06] LABS: Bedside Glucose 158 mg/dL (70-110)
--- NOTE | 2020-08-25 07:52 | HP_ITS ---
Intake Intake Visit Reasons: CSCOPE/ POSITIVE COLOGUARD Chief Complaint: positive cologuard Publications Inspector Required: No Is patient in pain?: No Allergies rosuvastatin calcium [From Crestor] Allergy (Verified 08/02/20 08:42) Unknown Medications Insulin Lispro [Humalog] 0 unit SQ TID 03/01/15 [History Confirmed 08/02/20] Nitroglycerin (INPATIENT USE) [Nitrostat] 0.4 mg SUBLINGUAL Q5M PRN 03/01/15 [History Confirmed 08/02/20] Duloxetine HCl 30 mg PO DAILY 04/30/17 [History Confirmed 08/02/20] aspirin 81 mg tablet,delayed release 81 mg PO QDAY tab 11/16/17 [History Confirmed 08/02/20] atenolol 25 mg tablet 25 mg PO BID tab 12/31/17 [History Confirmed 08/02/20] ramipril 10 mg capsule 10 mg PO QDAY cap 12/31/17 [History Confirmed 08/02/20] clopidogrel 75 mg tablet 75 mg PO DAILY #90 tab 08/27/19 [Rx Confirmed 08/02/20] magnesium oxide 400 mg PO DAILY #30 tab 09/02/19 [Rx Confirmed 08/02/20] ergocalciferol (vitamin D2) 1,250 mcg (50,000 unit) capsule 50,000 unit PO Q2W cap 10/03/19 [History Confirmed 08/02/20] atorvastatin 10 mg tablet 10 mg PO DAILY tab 07/05/20 [History Confirmed 08/02/20] insulin glargine 100 unit/mL (3 mL) subcutaneous pen 45 unit SC QHS ml 07/05/20 [History Confirmed 08/02/20] metformin 500 mg tablet 1,000 mg PO BID tab 07/05/20 [History Confirmed 08/02/20] prednisone 1 mg tablet 3 mg PO DAILY tab 07/05/20 [History Confirmed 08/02/20] [facility] Medical History PVD (peripheral vascular disease) (Chronic) Essential hypertension (Chronic) Type 2 diabetes mellitus (Chronic) Hyperlipidemia (Chronic) Atherosclerotic heart disease of [place] coronary artery without angina pectoris (Chronic) Paroxysmal atrial fibrillation (Chronic) Polymyalgia rheumatica (Acute) Long-term use of high-risk medication (Chronic) SHAE (obstructive sleep apnea) (Chronic) Detached retina, left (Resolved) Hypertension (Inactive) Surgical History History of coronary artery bypass surgery (Chronic ~03/09/15) Presence of stent in coronary artery (Chronic ~09/17/19) History of cholecystectomy (Acute) History of colonoscopy (Acute ~2009) History of detached retina repair (Acute) Aortocoronary bypass status (Chronic ~03/09/15) Presence of coronary angioplasty implant and graft (Chronic ~08/26/19) Postsurgical percutaneous transluminal coronary angioplasty (PTCA) status (Inactive ~04/28/99) Family History Father No problems noted. Social History (Updated 08/03/20 @ 10:[address] Latrell Oakes MD) Smoking Status: Former smoker how long ago did patient quit smokin years ago alcohol intake: current alcohol intake frequency: a few times a month substance use type: does not use caffeine: Yes Type: coffee Number of servings: 3 HPI HPI HPI: MAYI BRANDT, is a 69 M who presents to the office today for Evaluation for a positive Cologuard.Patient had a positive Cologuard test that was ordered on 07/20/2020. He has had no change in his bowel or bladder habits. ROS General General: No weight change, appetite, fatigue, colon cancer, breast cancer or weakness HEENT HEENT: Yes eye surgery; no difficulty swallowing, eye injury, swollen glands or hoarseness Endo Endocrine: Yes diabetes mellitus; no thyroid disease, thyroid cancer, Hair loss, heat intolerance or cold intolerance Cardio Cardiovascular: Yes heart disease, atrial fibrillation, high blood pressure and heart stent; no murmur, pacemaker, heart attack, palpitations, shortness of breat with exertion or chest pain Psych Psychiatric: No depression, anxiety or hearing voices Resp Respiratory: No shortness of breath, No sleep apnea, No cough, No COPD, No asthma, No emphysema, No wheezing Gastro Gastrointestinal: No abdominal pain, No nausea or vomiting, No diarrhea, No constipation, No blood in stool, No acid reflux, No hemorrhoids, No ulcers, No gallbladder problem, No black,tarry stools Mitch Hematologic: Yes blood thinners, No blood disorders, No bleeding, No anemia, No blood clots Neuro Neurologic: No weakness Exam Cardio Heart Sounds: no murmurs Assessment & Plan Problems 1. Positive colorectal cancer screening using Cologuard test R19.5 Plan I have discussed the above with the patient. I have offered the patient colonoscopy for evaluation. I have explained the risks/benefits of the procedure and described the procedure. I have discussed the risks with the patient, including but not limited to: infection, bleeding, perforation of the GI tract requiring emergency surgery, inability to complete the procedure, injury to any internal organs, complications of anesthesia, etc. - the patient understands and agrees to proceed. I have answered all the patient's questions to the patient's satisfaction and the patient has no further questions. The patient has been given instructions for the colon cleansing preparation. I spent 12 minutes talking to the patient. Coding Level of Care Code Attention Dhaval Diagnoses Positive colorectal cancer screening using Cologuard test R19.5 Time Spent (min) 12 Comment Please bill this as a telephone visit I have re-examined the patient. There are no clinical changes since date of exam.
[2020-08-25 08:20] VITALS: BP 121/58; BP 166/66; PULSE 67; RESP 16; TEMP 36.8; O2SAT 96
[2020-08-25 08:25] VITALS: BP 122/70; BP 166/66; PULSE 64; RESP 16; O2SAT 95
[2020-08-25 08:30] VITALS: BP 131/60; BP 166/66; PULSE 61; RESP 17; O2SAT 97
[2020-08-25 08:34] VITALS: BP 148/63; BP 166/66; PULSE 64; RESP 16; TEMP 36.8; O2SAT 96
[2020-08-25 08:40] VITALS: BP 166/66
--- NOTE | 2020-08-25 11:30 | OP.CCLET_ITS ---
08/25/2020 Amy Heath Re : Colonoscopy procedure for Genaro Heath This procedure was performed on Tuesday, August 25, 2020. My impressions and recommendations are as follows: Impressions : - One 3 mm polyp in the rectum, removed with a jumbo cold forceps. Resected and retrieved. - Diverticulosis in the sigmoid colon. No specimens collected. - Non-bleeding internal hemorrhoids. No specimens collected. - The examination was otherwise normal. Recommendations : - Discharge patient to home. - Resume previous diet. - Continue present medications. - Await pathology results. - Repeat colonoscopy in 5-10 years for surveillance. - Telephone my office for pathology results in 1 week. My findings are described in the full procedure note, which is enclosed. If I can be of further assistance, please feel free to contact me at Doctor phone number(s): , Fax: [phone], Work: . Sincerely, MD Latrell Cloud MD 08/25/2020 8:17:46 AM This report has been signed electronically.
--- NOTE | 2020-08-25 11:30 | OP.COLON_ITS ---
Patient Name: Genaro Julian Procedure Date: 08/25/2020 7:54 AM Date of : 1950 Age: 69 Procedure: Colonoscopy Indications: Positive Cologuard test Providers: Latrell Oakes MD Referring MD: Amy Heath Medicines: See the Anesthesia note for documentation of the administered medications Patient Profile: This is a 69 year old male. Refer to note in patient chart for documentation of history and physical. Last Colonoscopy: more than 10 years ago. Complications: No immediate complications. Procedure: Pre-Anesthesia Assessment: - Prior to the procedure, a History and Physical was performed, and patient medications and allergies were reviewed. The patient's tolerance of previous anesthesia was also reviewed. The risks and benefits of the procedure and the sedation options and risks were discussed with the patient. All questions were answered, and informed consent was obtained. Prior Anticoagulants: The patient has taken no previous anticoagulant or antiplatelet agents. ASA Grade Assessment: II - A patient with mild systemic disease. After reviewing the risks and benefits, the patient was deemed in satisfactory condition to undergo the procedure. After I obtained informed consent, the scope was passed under direct vision. Throughout the procedure, the patient's blood pressure, pulse, and oxygen saturations were monitored continuously. The adult colonoscope was introduced through the anus and advanced to the cecum, identified by appendiceal orifice and ileocecal valve. The colonoscopy was performed without difficulty. The patient tolerated the procedure well. The quality of the bowel preparation was good. Scope In: 8:01:16 AM Scope Withdrawal Time 0 hours 8 minutes 29 seconds Scope Out: 8:13:05 AM Total Procedure Duration Time 0 hours 11 minutes 49 seconds Findings: A 3 mm polyp was found in the rectum. The polyp was sessile. The polyp was removed with a jumbo cold forceps. Resection and retrieval were complete. Many small-mouthed diverticula were found in the sigmoid colon. No biopsies or other specimens were collected for this exam. Non-bleeding internal hemorrhoids were found during retroflexion. The hemorrhoids were mild and medium-sized. No biopsies or other specimens were collected for this exam. The exam was otherwise without abnormality. Impression: - One 3 mm polyp in the rectum, removed with a jumbo cold forceps. Resected and retrieved. - Diverticulosis in the sigmoid colon. No specimens collected. - Non-bleeding internal hemorrhoids. No specimens collected. - The examination was otherwise normal. Recommendation: - Discharge patient to home. - Resume previous diet. - Continue present medications. - Await pathology results. - Repeat colonoscopy in 5-10 years for surveillance. - Telephone my office for pathology results in 1 week. Procedure Code(s): --- Professional --- 17987, Colonoscopy, flexible; with biopsy, single or multiple Diagnosis Code(s): --- Professional --- K62.1, Rectal polyp K64.8, Other hemorrhoids R19.5, Other fecal abnormalities K57.30, Diverticulosis of large intestine without perforation or abscess without bleeding CPT copyright 2017 [employer]. All rights reserved. The codes documented in this report are preliminary and upon shipping hand review may be revised to meet current compliance requirements. MD Latrell Cloud MD 08/25/2020 8:17:46 AM This report has been signed electronically. Number of Addenda: 0 Note Initiated On: 08/25/2020 7:54 AM
== END 2020-08-25 08:59 | disposition home or self-care (01) ==
LOC: EN 06:23 → AC 06:23
PROVIDERS: PCP Internal Medicine; Referring Provider Internal Medicine; Visit Provider Surgery
PROC: 0DJD8ZZ Inspection of Lower Intestinal Tract, Via Natural or Artificial Opening Endoscopic (ICD-10-PCS; CPT 45378; principal; 2020-08-25 07:55)
DX: K62.1 Rectal polyp (principal); K64.8 Other hemorrhoids; K57.30 Diverticulosis of large intestine without perforation or abscess without bleeding; R19.5 Other fecal abnormalities; Z20.828 Contact with and (suspected) exposure to other viral communicable diseases; K21.9 Gastro-esophageal reflux disease without esophagitis; I25.10 Atherosclerotic heart disease of native coronary artery without angina pectoris; I48.0 Paroxysmal atrial fibrillation; I35.0 Nonrheumatic aortic (valve) stenosis; I10 Essential (primary) hypertension; E78.00 Pure hypercholesterolemia, unspecified; E11.51 Type 2 diabetes mellitus with diabetic peripheral angiopathy without gangrene; M35.3 Polymyalgia rheumatica; G47.33 Obstructive sleep apnea (adult) (pediatric); Z95.1 Presence of aortocoronary bypass graft; Z95.5 Presence of coronary angioplasty implant and graft; Z79.4 Long term (current) use of insulin; Z79.82 Long term (current) use of aspirin; Z79.899 Other long term (current) drug therapy; Z87.891 Personal history of nicotine dependence
CPT/HCPCS: 45380; 82962; 87426; 88305; C9803; J7120; J2405

== ENCOUNTER → 2021-03-24 10:28 | Outpatient (CLI) | payer MEDICARE, OTHER, SELFPAY ==
[2019-08-27 11:35] VITALS: BMI 32.1
[2020-12-27 08:48] VITALS: BMI 31.6
--- NOTE | 2021-03-24 10:41 | US_ITS ---
STUDY: ABDOMINAL ULTRASOUND - RIGHT UPPER QUADRANT REASON FOR VISIT: Male, 70 years old FATTY LIVER TECHNIQUE: Ultrasound evaluation of the right upper quadrant was performed with real-time and static barragan-scale imaging. TECHNICAL QUALITY: Limited. Examination limited by bowel gas. COMPARISON: Comparison is made with prior study dated 03/08/2020. FINDINGS: Liver: The liver measures 16.4 cm. There is increased echogenicity consistent with fatty infiltration. The bile ducts are within normal limits. There is hepatic color flow. The direction of portal flow is hepatopetal. There is no demonstrated mass lesion. Gallbladder: The patient is status post cholecystectomy. Common Bile Duct (C.B.D.): The common bile duct measures 3.4 mm. Pancreas: There is nonvisualization of the pancreas due to overlying bowel gas. There is normal echogenicity of the pancreas. There is no demonstrated pancreatic mass or cyst. Right Kidney: Normal size of the right kidney. The right kidney measures 10.7 cm x 6.1 cm x 5.9 cm. Normal renal cortex. The right cortex measures 1.8 cm. There is no demonstrated renal mass or cyst. There is no right hydronephrosis. US/Liver IMPRESSION: Fatty infiltration of the liver. Status post cholecystectomy. Electronically Signed: Romaine Hart MD at 8:36 EDT , Service support ,
== END ==
PROVIDERS: PCP Internal Medicine; Referring Provider Internal Medicine; Visit Provider Internal Medicine
DX: K76.0 Fatty (change of) liver, not elsewhere classified (principal)
CPT/HCPCS: 76705

== ENCOUNTER → 2021-05-12 06:39 | Outpatient (CLI) | payer MEDICARE, OTHER, SELFPAY ==
[2019-08-27 11:35] VITALS: BMI 32.1
[2021-04-20 10:12] VITALS: BMI 31.6
--- NOTE | 2021-05-12 06:41 | ECHOD_ITS ---
Reason For Study: SOB Procedure This was a 2D Doppler, Color Flow transthoracic echocardiogram. The study was technically difficult. Exam performed in department. Left Ventricle Normal LV size. Sigmoid septum. Left ventricular systolic function is normal. The estimated ejection fraction is 55 %. No regional wall motion abnormalities noted. Right Ventricle Normal RV size. Normal systolic function. Atria The left atrium is moderately enlarged. Normal right atrium. No doppler evidence for ASD. Mitral Valve There is no mitral annular calcification. Normal mitral valve. Trivial mitral valve insufficiency. Tricuspid Valve Normal tricuspid valve. Trivial tricuspid valve insufficiency. Unable to estimate RV systolic pressure/pulmonary artery pressure due to technically difficult study. Aortic Valve Trisinus/trileaflet aortic valve. Mild diffuse aortic valve thickening. Moderate diffuse aortic valve calcification. Mild aortic stenosis. Pulmonic Valve The pulmonic valve is not well visualized. Trivial pulmonic valve insufficiency. Great Vessels Normal sized aortic root. Pericardium/Pleural No pericardial effusion. MMode/2D Measurements & Calculations LVIDd: 4.8 cm IVSd: 1.4 cm LVOT diam: 2.4 cm LVIDs: 4.1 cm LVPWd: 1.1 cm LVOT area: 4.4 cm2 RVDd: 3.6 cm FS: 15.6 % Ao root diam: 3.7 cm LAV(MOD-bp): 82.9 ml LVAd ap4: 36.6 cm2 LAV(MOD-bp) Indexed: 37.5 ml/m2 LVLd ap4: 8.9 cm LAV(MOD-sp2): 75.8 ml EDV(MOD-sp4): 127.5 ml LAV(MOD-sp4): 85.4 ml EDV(sp4-el): 127.1 ml LVAs ap4: 23.8 cm2 LVLs ap4: 7.7 cm ESV(MOD-sp4): 63.9 ml ESV(sp4-el): 62.5 ml EF(MOD-sp4): 49.9 % EF(sp4-el): 50.8 % LVAd ap2: 36.3 cm2 SV(MOD-sp4): 63.6 ml SV(MOD-sp2): 40.8 ml LVLd ap2: 8.6 cm EDV(MOD-sp2): 128.4 ml EDV(sp2-el): 130.1 ml LVAs ap2: 28.4 cm2 LVLs ap2: 8.1 cm ESV(MOD-sp2): 87.6 ml ESV(sp2-el): 84.9 ml EF(MOD-sp2): 31.8 % SV(sp4-el): 64.6 ml LA dimension(2D): 5.4 cm LA A4 area: 23.9 cm2 RA A4 area: 11.0 cm2 Doppler Measurements & Calculations MV E max faheem: 72.2 cm/sec Lat Peak E' Faheem: 8.7 cm/sec Med Peak E' Faheem: 3.8 cm/sec MV A max faheem: 57.4 cm/sec E/E' lat: 8.3 E/E' med: 18.9 MV E/A: 1.3 Ao V2 max: 229.7 cm/sec LV V1 max: 98.9 cm/sec SV(LVOT): 93.7 ml Ao max P.1 mmHg LV V1 max P.9 mmHg Ao V2 mean: 157.7 cm/sec LV V1 mean P.0 mmHg Ao mean P.2 mmHg LV V1 mean: 67.0 cm/sec Ao V2 VTI: 52.2 cm LV V1 VTI: 21.4 cm MORA(I,D): 1.8 cm2 MORA(V,D): 1.9 cm2 PA V2 max: 90.4 cm/sec ECHO/Echo Complete Interpretation Summary The study was technically difficult. Left ventricular systolic function is normal. The estimated ejection fraction is 55 %. Sigmoid septum. The left atrium is moderately enlarged. Trivial mitral valve insufficiency. Trivial tricuspid valve insufficiency. Mild aortic stenosis. Trivial pulmonic valve insufficiency. Unable to estimate RV systolic pressure/pulmonary artery pressure due to techni clemencia difficult study. Transmitral diastolic flow velocities suggest diastolic dysfunction (pseudonorm al pattern). Ordering Physician: Krishan Matthew/Aleks Carlson Referring Physician: Amy Heath D.O. Performed By: Holly Jordan RDCS
--- NOTE | 2021-05-12 11:18 | STRESSREP_ITS ---
Stress Test Report Date: 05-12-2021 Procedure: Pharmacologic stress nuclear imaging study Indications: Chest pain; CAD; PCI; CABG; PAF Consent: Per the patient Procedure: The patient underwent pharmacologic (Regadenoson 0.4mg ) evaluation with a peak heart rate of 98 beats per minute (65%predicted maximal heart rate) and a peak blood pressure of 180/72 mmHg. The baseline ECG demonstrated sinus rhythm; nonspecific ST segment abnormality. The peak pharmacologic ECG demonstrated no obvious ECG changes. There were no cardiac dysrhythmias pretest, during pharmacologic infusion, or recovery. There was no complaint of chest discomfort during pharmacologic infusion or recovery. The examination was discontinued secondary to completion of protocol. Impression: 1. Pharmacologic (Regadenoson) evaluation 2. Peak pharmacologic ECG with no obvious ECG changes. 3. There were no cardiac dysrhythmias pretest, during pharmacologic infusion, or recovery. 4. Nuclear images pending Myocardial perfusion imaging study: Technique: The patient was injected with 14.5 millicuries of technetium 99m Cardiolite and subsequently rest SPECT Cardiolite nuclear imaging was obtained in the horizontal long, vertical long, and short axis views. The patient underwent pharmacologic (Regadenoson) evaluation with a peak heart rate of 98 beats per minute (65% percent predicted maximal heart rate) and a peak blood pressure of 180/72 mmHg. The patient was injected with 44.1 millicuries of technetium 99m Cardiolite and subsequently stress SPECT Cardiolite nuclear imaging was obtained in the horizontal long, vertical long, and short axis views. A gated Cardiolite study at peak stress was obtained. Interpretation: Rest and stress SPECT Cardiolite nuclear imaging status post realignment, normalization, and attenuation correction demonstrate an element of body motion during image acquisition and on the preattenuation corrected images the appearance of relative uniform tracer uptake/myocardial perfusion at rest and status post stress the appearance of diminished myocardial perfusion/tracer uptake in portions of the mid anterolateral segments. Status post attenuation correction there appears to be relative uniform tracer uptake/myocardial perfusion both at rest and stress. There is end systolic thickening and brightening. The gated Cardiolite study demonstrates myocardial thickening and inward wall motion. The reported LVEF is 44%. Impression: 1. Rest and stress SPECT cardiac nuclear imaging demonstrate an element of body motion during image acquisition and a discrepancy between the preattenuation and post attenuation images with the preattenuation images potentially compatible with an area of stress-induced myocardial ischemia in the mid anterolateral segments and the post attenuation images suggesting relative uniform/myocardial perfusion tracer uptake appearing within normal limit. 2. The gated Cardiolite study reports an LVEF of 449%. This note was generated with [employer] software. It may contain incorrect words, spelling, and punctuation that were not noted in checking the note before signing.
== END ==
PROVIDERS: PCP Internal Medicine; Referring Provider Nurse Practitioner Family; Visit Provider Nurse Practitioner Family
DX: I48.0 Paroxysmal atrial fibrillation (principal); R06.00 Dyspnea, unspecified; I10 Essential (primary) hypertension; E78.5 Hyperlipidemia, unspecified; I25.10 Atherosclerotic heart disease of native coronary artery without angina pectoris; Z95.5 Presence of coronary angioplasty implant and graft; Z95.1 Presence of aortocoronary bypass graft
CPT/HCPCS: 78452; 93017; 93306; A9500; A4216; J2785

== ENCOUNTER 2021-08-02 16:03 | Outpatient (CLI) | payer MEDICARE, OTHER, SELFPAY ==
[2019-08-27 11:35] VITALS: BMI 32.1
[2021-08-02] MEDS: 0.9% Saline Lock 10 ML Syringe IV (16:20)
[2021-08-02 16:22] VITALS: BP 147/61; PULSE 67; RESP 16; TEMP 36.6; O2SAT 99; BMI 32.1
[2021-08-02 17:01] VITALS: BP 145/91; PULSE 70; RESP 16; TEMP 36.9; O2SAT 98
[2021-08-02 18:01] VITALS: BP 145/61; PULSE 63; RESP 16; TEMP 36.9; O2SAT 96
== END 2021-08-02 18:01 | disposition home or self-care (01) ==
LOC: MS3OUT 16:03 → MS3 16:04
PROVIDERS: PCP Internal Medicine; Referring Provider Nurse Practitioner Adult Health; Visit Provider Nurse Practitioner Adult Health
DX: U07.1 COVID-19 (principal)
CPT/HCPCS: J7050; M0245; Q0245; A4216

== ENCOUNTER → 2022-01-05 | Outpatient (CLI) | payer MEDICARE, OTHER, SELFPAY ==
[2019-08-27 11:35] VITALS: BMI 32.1
--- NOTE | 2022-01-05 08:00 | CT_ITS ---
STUDY: CT CHEST WITHOUT CONTRAST REASON FOR EXAM: Male, 71 years old. INTERSTITIAL LUNG DISEASE. History of prior Covid infection. RADIATION DOSAGE (If Supplied By Facility): CTDIvol = ( 22.82 ) mGy, DLP = ( 846.27 ) mGycm TECHNIQUE: Transaxial imaging was performed without the administration of intravenous contrast material. Individualized dose optimization techniques were used for this CT. COMPARISON: Comparison is made with prior chest radiograph dated 12/27/2021. FINDINGS: CHEST Diffuse bilateral increased interstitial markings more prominent in the upper lobes. There is evidence of increased markings at the lung bases with evidence of bronchiectasis. Small bilateral pleural effusions. There is thickening of the left major fissure. Sternal cerclage wires and vascular clips are present from a prior sternotomy and coronary artery bypass graft procedure (CABG). There are calcifications of the coronary arteries. There are multiple small lymph nodes within the mediastinum, which are normal in size and morphology most compatible with reactive lymph hyperplasia. Calcified right hilar lymph nodes. Normal hilar regions. Normal unenhanced pulmonary arteries. There is atherosclerotic calcification of the aortic arch with tortuosity and elongation of the aortic arch and descending thoracic aorta. There are multi-level degenerative changes of the thoracic spine. There is no demonstrated abnormality of the visualized upper abdomen. CT/Chest without Contrast IMPRESSION: Diffuse bilateral increased interstitial markings worse in the upper lobes with evidence of scarring at the lung bases and bronchiectasis worse in the left lower lobe with small bilateral pleural effusions. Thickening of the left major fissure. Electronically Signed: Romaine Hart MD at 10:00 EDT ,
--- NOTE | 2022-01-05 13:37 | PFTCOMP_ITS ---
COMPLETE PULMONARY FUNCTION TEST INTERPRETATION Brief HPI: Patient is a 71 year old male, currently under the care of Dr. Heath, who presents to [facility] for complete pulmonary function tests secondary to diagnosis of dyspnea. Respiratory therapist reports good effort and reproducible results. Interpretation: Forced expiration spirometry shows no large airways obstructive ventilatory defect with an FEV1 of 79% predicted. There is no significant bronchodilator response by strict ATS criteria. Spirograms are of good quality and plateau normally. The respiratory flow volume loop shows a normal pattern. Lung volumes by body plethysmography show a decreased total lung capacity at 3.8 1 L, 57% predicted. All other lung volumes are reduced symmetrically. Diffusion capacity by carbon monoxide is decreased at 58% predicted. The airway resistance is elevated. No previous pulmonary function tests were available for review. Impression: Moderate restrictive ventilatory defect with a symmetric reduction in diffusion capacity, in a pattern consistent with interstitial lung disease.
== END | disposition home or self-care (01) ==
LOC: PSN 07:58
PROVIDERS: PCP Internal Medicine; Referring Provider Internal Medicine; Visit Provider Internal Medicine
DX: R94.2 Abnormal results of pulmonary function studies (principal); J84.9 Interstitial pulmonary disease, unspecified; D69.6 Thrombocytopenia, unspecified
CPT/HCPCS: 71250; 94060; 94726; 94729

== ENCOUNTER → 2022-01-19 | Outpatient (CLI) | payer MEDICARE, OTHER, SELFPAY ==
[2019-08-27 11:35] VITALS: BMI 32.1
[2022-01-19] VITALS (10 sets, daily range): BP systolic 118–161; BP diastolic 52–95; PULSE 64–79; RESP 10–26; TEMP 36.8; O2SAT 93–99; BMI 32.1
--- NOTE | 2022-01-19 | IMM_PTH ---
PATIENT: MAYI BRANDT LOC: CT U#:[id number] AGE/SX: 71/M ROOM: RE01/19/[address]: Dr. Darius Colin MD : 1950 BED: DIS: 01/19/2022 SPEC #: [id number] RECD: 01/23/22 09:43 STATUS: JENNI REQ #: [id number] SOLE: 01/19/22 00:[address]: Darius Colin DEPT: IMMUNOHISTOCHEMISTRY RECD BY: Sharmila Durant ENTERED: 01/23/22 09:45 SP TYPE: IMMUNO OTHR DR: Dr. Amy Heath DO Tissues: B - Bone marrow of iliac crest Procedures: BCL-2 (add) CD20 (add) CD3 (add) CD30 (add) CD34 (add) CD45 (add) CD5 (add) CD56 (add) CD79A (add) MPO (add) Pankeratin (initial) PHYSICIAN & [address] [address] SPECIMEN INFORMATION: Tissue Source: B ? Bone marrow biopsy and aspirate, clot Clinical Info: Anemia, thrombocytopenia Specimen Number: [id number] CPT code: 77540, 68547 x10 METHODOLOGY: Deparaffinized sections of prefer/formalin-fixed tissue or PAP/DQ stained slides are incubated with monoclonal/polyclonal antibodies/oligonucleotide probes. Localization is made via biotin free immunoperoxidase method. Appropriate controls are performed and reacted as expected. Results on target cell population are indicated in the following table: RESULTS: ANTIBODY / CLONE RESULT Block B AE1-3 (AE1/AE3/PCK26) negative CD3 (PS1) negative CD5 (SP10) negative CD20 (L26) negative CD45 (RP2/18) negative CD79a (11E3) negative CD30 (Benjamín-H2) negative BCL-2 (bcl-2/100/D5) negative MPO (polyclonal) positive CD56 (123C3.D5) negative CD34 (QBEnd-10) negative These tests were developed and their performance characteristics determined by [facility]. They may not have been cleared or approved by the U.S. Food and Drug Administration. The FDA has determined that such clearance or approval is not necessary. The above immunohistochemical/dualISH markers are ordered and reviewed by the Pathologist. INTERPRETATION: B. Bone marrow clot: No evidence of malignancy. AM:shahida 01/24/2022
--- NOTE | 2022-01-19 | BMB_PTH ---
PATIENT: MAYI BRANDT LOC: CT U#:[id number] AGE/SX: 71/M ROOM: RE01/19/[address]: Dr. Darius Colin MD : 1950 BED: DIS: 01/19/2022 SPEC #: [id number] RECD: 01/19/22 11:13 STATUS: JENNI RETito #: [id number] SOLE: 01/19/22 00:[address]: Darius Colin DEPT: BONE MARROW RECD BY: Remington Restrepo ENTERED: 01/19/22 11:14 SP TYPE: BMB ALBERTO DR: Dr. Amy Heath DO Tissues: A - Bone marrow, NOS B - Bone marrow, NOS C - Bone marrow, NOS Procedures: Bone Marrow Aspiration Bone Marrow Core Biopsy Iron Stain Bone Marrow HEADER OPERATION: Bone marrow biopsy, clot and aspiration PRE-OP DIAGNOSIS: Anemia, thrombocytopenia TISSUE SUBMITTED: A - Core, B - Clot, C - Smears, and send outs (flow, cytogenetics and MDS) BONE MARROW DIAGNOSIS Bone marrow biopsy, clot and aspiration: Trilineage hematopoiesis. No evidence of malignancy. See comment. AM:shahida 01/24/2022 COMMENT Immunohistochemistry ([id number]) supports the above diagnosis. Flow cytometry analysis from [facility] does not reveal evidence of acute leukemia or increased blasts. There is no evidence of abnormal myeloid maturation, B or T-cell lymphoma or monocytosis. The complete flow report is viewable in EMR. Case has been reviewed in consultation with Dr. Rubio who concurs with the above diagnosis. IDC:SJ BONE MARROW STUDY Slides are reviewed. CBC DATE: 01/19/22 WBC 10.0; RBC 4.22; HGB 12.7; HCT 37.9; MCV 89.8; RDW 14.1; PLTS 32,000 SEGS 74%; LYMPHS 11.0%; MONOS 7.3%; EOS 5.5%; BASOS 1.6% PERIPHERAL SMEAR: Submitted. RBC: Normocytic anemia WBC: Within normal limits PLTS: Marked thrombocytopenia BONE MARROW ASPIRATE DIFFERENTIAL: Only rare maturing bone marrow elements present. ASPIRATE FINDINGS: Rare trilineage hematopoiesis CORE BIOPSY FINDINGS: No bone/bone marrow present. ASPIRATE CLOT FINDINGS: Site: Not specified Marrow Particles: Rare Cellularity %: Not applicable M/E ratio: Not applicable Minute fragment of bone marrow with trilineage hematopoiesis. SPECIAL STAINS (with matched controls): Iron: Within normal limits Reticulin: Within normal limits PAS: Highlights myeloid elements and megakaryocytes. BONE MARROW GROSS A - Received is a container labeled with the patient's name and designated bone marrow. The specimen consists of a scant amount of soft tissue. The specimen is totally submitted for cell block preparation. B - Received labeled with the patient's name and designated bone marrow is a specimen that consists of approximately 1 ml of bloody fluid that on filtration yields multiple minute fragments of blood clots measuring in aggregate 2 x 0.7 x 0.1 cm. The specimen is totally submitted in one cassette. C - Also received are 12 unstained and 1 peripheral stained slides. The unstained slides are submitted for appropriate staining. Also received are three green top tubes which are sent to our reference lab for flow, cytogenetics and MDS. / SJ:rg 01/19/2022 TC:5 CPT: 36926, 07202, 04537 x2, 45698 x3 ADDENDUM ADDENDUM ADDENDUM ADDENDUM ADDENDUM ADDENDUM ADDENDUM 03/01/2022 09:55 ADDENDUM 03/01/2022 09:55 ADDENDUM 03/23/2022 10:27 ADDENDUM 03/01/2022 09:55 ADDENDUM 03/01/2022 09:55 ADDENDUM 03/01/2022 09:55 CYTOGENETICS REPORT FROM [facility] INTERPRETATION: A normal male karyotype was observed in twenty metaphases analyzed. Karyotype: 46,XY[20] Please see complete report in e-chart or EMR FLUORESCENCE IN-SITU HYBRIDIZATION (FISH) FROM [facility] INTERPRETATION: 1. No evidence of deletion of 5q or monosomy 5. 2. No evidence of monosomy 7 or deletion of 7q. 3. No evidence of trisomy 8 (+8). 4. No evidence of deletion of 20q12. Please see complete report in e-chart or EMR
--- NOTE | 2022-01-19 08:00 | CT_ITS ---
PROCEDURE: CT GUIDED BONE marrow biopsy and aspiration of the posterior left iliac bone. DATE: 01/19/2022 INDICATION: Male, 71 years old. Thrombocytopenia. PHYSICIAN: Romaine Hart M.D. RADIATION DOSAGE (If Supplied By Facility): CTDIvol = ( 16 ) mGy, DLP = ( 75.95 ) mGycm. Individualized those optimization techniques were utilized. PROCEDURE: The risks, benefits, and alternatives to the procedure were explained to the patient. The specific risk of hemorrhage requiring further treatment or intervention was detailed and accepted. Follow-up instructions were discussed with the patient as well. Written informed consent was obtained. The patient was brought into the CT suite and placed in the prone position. . An appropriate entry site was identified. The overlying skin was prepped and draped in the usual sterile fashion. 1% lidocaine was administered subcutaneously for local anesthesia. Conscious sedation was performed. The patient received 2 mg of VERSED and 50 mcg of FENTANYL intravenously. Conscious sedation was started at 9:22 AM and terminated at 9:45 AM. The patient was independently monitored by the department nurse. Under CT guidance, a bone marrow biopsy and aspirates were performed utilizing an 11-gauge bone marrow biopsy kit. The specimens were then placed in the appropriate fluid and transported to the laboratory for analysis. Hemostasis was obtained. The patient tolerated the procedure well without immediate complications. CT/Biopsy/Inj or Needle Placement IMPRESSION: Successful CT guided bone marrow biopsy of the posterior left iliac bone and bone marrow aspirates, as described above. Conscious sedation protocol was followed. Electronically Signed: Romaine Hart MD at 10:09 EDT ,
[2022-01-19 08:17] LABS: Absolute Neutrophil Count 7.4 X10^3/uL (2.0-7.7); Basophil# 0.16 X10^3/uL; Basophil% 1.6 % (0-1); Eosinophil# 0.55 X10^3/uL; Eosinophils% 5.5 % (0-5); Hematocrit 37.9 % (40-54); Hemoglobin 12.7 g/dL (13.0-16.5); Mean Corp Hgb Conc 33.5 g/dL (32-36); Mean Corpuscular Hgb 30.1 pg (27.0-32.0); Mean Corpuscular Volume 89.8 fL (80-94); Monocyte# 0.73 X10^3/uL; Monocyte% 7.3 % (0-10); NRBC Flagged by Analyzer 0 % (0-5); Neutrophil # 7.39 X10^3/uL (2.7-7.7); POSITIVE COUNT YES; Platelet Count 32 K/mm3 (150-450); RBC Distribution Width CV 14.1 % (11.6-14.6); RBC Distribution Width SD 45.6 fl (35.1-43.9); Red Blood Count 4.22 M/mm3 (4.6-6.2)
[2022-01-19 08:21] LABS: Differential Indicated SCAN CRITERIA MET
[2022-01-19 08:27] LABS: International Normalized Ratio 1.1; Prothrombin Time (Protime)PT. 13.4 SECONDS (11.7-14.9)
[2022-01-19 08:28] LABS: Partial Thromboplast Time 27.9 Seconds (24.1-36.2)
[2022-01-19 08:53] LABS: Platelet Estimate MKD DEC (ADEQ)
[2022-01-19] MEDS: Midazolam 2 MG/2 ML Syringe IV (09:22)
[2022-01-19] MEDS: 0.9% Normal Saline 250 ML IV.SOLN. (09:22)
[2022-01-19] MEDS: fentaNYL 100 MCG/2 ML Ampul IV (09:25)
[2022-01-19] MEDS: Lidocaine 2% (20 ml mdv) 20 ML Vial INFILT (09:37)
[2022-01-20 13:23] LABS: Pathologist Review Reviewed
== END | disposition home or self-care (01) ==
LOC: CT 08:00
PROVIDERS: PCP Internal Medicine; Referring Provider Internal Medicine Hematology & Oncology; Visit Provider Internal Medicine Hematology & Oncology
DX: D69.6 Thrombocytopenia, unspecified (principal); E11.51 Type 2 diabetes mellitus with diabetic peripheral angiopathy without gangrene; M35.3 Polymyalgia rheumatica; I48.0 Paroxysmal atrial fibrillation; Z79.4 Long term (current) use of insulin; D64.9 Anemia, unspecified; I10 Essential (primary) hypertension; I25.10 Atherosclerotic heart disease of native coronary artery without angina pectoris; Z95.5 Presence of coronary angioplasty implant and graft; Z79.02 Long term (current) use of antithrombotics/antiplatelets; Z79.82 Long term (current) use of aspirin; Z79.84 Long term (current) use of oral hypoglycemic drugs; Z79.899 Other long term (current) drug therapy; Z86.16 Personal history of COVID-19; Z87.891 Personal history of nicotine dependence
CPT/HCPCS: 38222; 36415; 77012; 85025; 85610; 85730; 88305; 88311; 88313; 88341; 88342; 99156; J7050; A4216

== ENCOUNTER → 2022-02-03 | Outpatient (CLI) | payer MEDICARE, OTHER, SELFPAY ==
[2019-08-27 11:35] VITALS: BMI 32.1
[2022-02-03 09:52] LABS: Absolute Lymphocyte Count 0.82 X10^3/uL (0.83-4.51); Absolute Neutrophil Count 6.4 X10^3/uL (2.0-7.7); Basophil% 1.2 % (0-1); Eosinophil# 0.76 X10^3/uL; Eosinophils% 8.9 % (0-5); Hematocrit 36.2 % (40-54); Hemoglobin 12.5 g/dL (13.0-16.5); Lymphocyte # 0.82 X10^3/ul (0.83-4.51); Lymphocyte % 9.6 % (19-41); Mean Corp Hgb Conc 34.5 g/dL (32-36); Mean Corpuscular Hgb 30.1 pg (27.0-32.0); Mean Corpuscular Volume 87.2 fL (80-94); Mean Platelet Vol. 15.3 fl (6.2-12.0); Monocyte# 0.46 X10^3/uL; Monocyte% 5.4 % (0-10); NRBC Flagged by Analyzer 0 % (0-5); Neutrophil # 6.39 X10^3/uL (2.7-7.7); Neutrophil % 74.4 % (47-70); POSITIVE COUNT YES; RBC Distribution Width CV 14.1 % (11.6-14.6); RBC Distribution Width SD 44.4 fl (35.1-43.9); Red Blood Count 4.15 M/mm3 (4.6-6.2); White Blood Count 8.6 K/mm3 (4.4-11.0)
[2022-02-03 10:05] LABS: Differential Indicated SCAN CRITERIA MET; Platelet Count 39 K/mm3 (150-450)
[2022-02-03 10:06] LABS: Erythrocyte Sedimentation Rate 13 mm/hr (0-20)
[2022-02-03 10:12] LABS: AST(SGOT) 13 U/L (15-37); Alanine Aminotransfer ALT/SGPT 19 U/L (16-61); Albumin, Serum 3.6 g/dL (3.2-5.0); Alkaline Phosphatase 87 U/L (45-117); Bilirubin, Direct 0.17 mg/dL (0.00-0.30); CRP < 2.90 mg/L (0.0-3.0); Globulin 3.2 g/dL (2.2-4.2); Protein, Total 6.8 g/dL (6.4-8.2); Rheumatoid Factor < 10.0 IU/mL (<15)
[2022-02-03 10:30] LABS: Platelet Estimate MKD DEC (ADEQ)
[2022-02-07 11:44] LABS: Pathologist Review Reviewed
[2022-02-07 15:08] LABS: Anti-Scleroderma-70 AB <0.2 AI (0.0-0.9); RNP Ab <0.2 AI (0.0-0.9); SJOGREN'S Anti-SS-A test < 0.2 AI (0.0-0.9); SJOGREN'S Anti-SS-B test < 0.2 AI (0.0-0.9)
[2022-02-07 17:07] LABS: Angiotensin Convert Enzyme 19 U/L (14-82); Cytoplasmic Ab (C-ANCA) <1:20 titer (Neg:<1:20)
[2022-02-08 08:46] LABS: Anti-Smooth Muscle ABS 7 Units (0-19); CCP IgG Antibodies 2 units (0-19); Perinuclear Ab (P-ANCA) <1:20 titer (Neg:<1:20)
[2022-02-08 11:19] LABS: ANTINUCLEAR ANTIBODIES DIRECT Negative (Negative); Anti-dsDNA Ab <1 IU/mL (0-9)
== END | disposition home or self-care (01) ==
PROVIDERS: PCP Internal Medicine; Referring Provider Internal Medicine Pulmonary Disease; Visit Provider Internal Medicine Pulmonary Disease
DX: J84.9 Interstitial pulmonary disease, unspecified (principal)
CPT/HCPCS: 36415; 80076; 82164; 83516; 85025; 85652; 86038; 86140; 86200; 86225; 86235; 86256; 86431

== ENCOUNTER → 2022-06-12 | Outpatient (CLI) | payer MEDICARE, OTHER, SELFPAY ==
[2019-08-27 11:35] VITALS: BMI 32.1
--- NOTE | 2022-06-12 07:42 | CT_ITS ---
STUDY: CT CHEST WITHOUT CONTRAST REASON FOR EXAM: Male, 71 years old. R06.00. Dyspnea. Interstitial lung disease. RADIATION DOSAGE (If Supplied By Facility): CTDIvol = ( 19.61 ) mGy, DLP = ( 695.77 ) mGycm TECHNIQUE: Transaxial imaging was performed without the administration of intravenous contrast material. Multiplanar coronal and sagittal images were reformatted. Individualized dose optimization techniques were used for this CT. COMPARISON: Comparison is made with prior study 01/05/2022. FINDINGS: CHEST Diffuse bilateral increased interstitial markings with areas of confluence more prominent in the upper lobes. Progressive coalescence of the markings in the left lung base as compared to prior study. Small left pleural effusion. This has improved. Sternal cerclage wires and vascular clips are present from a prior sternotomy and coronary artery bypass graft procedure (CABG). There are calcifications of the coronary arteries. There are multiple small lymph nodes within the mediastinum, which are normal in size and morphology most compatible with reactive lymph hyperplasia. Calcified right hilar lymph nodes. Normal unenhanced pulmonary arteries. There is atherosclerotic calcification of the aortic arch with tortuosity and elongation of the aortic arch and descending thoracic aorta. There are mild degenerative changes of the thoracic spine. The patient is status post cholecystectomy. CT/Chest without Contrast IMPRESSION: Diffuse bilateral increased interstitial markings with areas of confluence. Progressive fibrosis with coalescence at the left lung base. Electronically Signed: Romaine Hart MD at 14:01 EDT ,
== END | disposition home or self-care (01) ==
LOC: CT 07:41
PROVIDERS: PCP Internal Medicine; Referring Provider Internal Medicine Pulmonary Disease; Visit Provider Internal Medicine Pulmonary Disease
DX: J84.9 Interstitial pulmonary disease, unspecified (principal)
CPT/HCPCS: 71250

== ENCOUNTER → 2022-07-18 | Outpatient (CLI) | payer MEDICARE, OTHER, SELFPAY ==
[2019-08-27 11:35] VITALS: BMI 32.1
[2022-07-18 12:44] LABS: AST(SGOT) 15 U/L (15-37); Alanine Aminotransfer ALT/SGPT 29 U/L (16-61); Albumin, Serum 3.8 g/dL (3.2-5.0); Alkaline Phosphatase 65 U/L (45-117); Bilirubin, Direct 0.16 mg/dL (0.00-0.30); CRP 7.03 mg/L (0.0-3.0); Globulin 3.3 g/dL (2.2-4.2); Protein, Total 7.1 g/dL (6.4-8.2); Rheumatoid Factor < 10.0 IU/mL (<15)
[2022-07-18 13:14] LABS: Absolute Lymphocyte Count 0.58 X10^3/uL (0.83-4.51); Absolute Neutrophil Count 9.7 X10^3/uL (2.0-7.7); Basophil# 0.06 X10^3/uL; Basophil% 0.5 % (0-1); Eosinophil# 0.37 X10^3/uL; Eosinophils% 3.2 % (0-5); Hemoglobin 11.6 g/dL (13.0-16.5); Lymphocyte # 0.58 X10^3/ul (0.83-4.51); Lymphocyte % 5.1 % (19-41); Mean Corp Hgb Conc 32.2 g/dL (32-36); Mean Corpuscular Hgb 28.6 pg (27.0-32.0); Mean Corpuscular Volume 88.9 fL (80-94); Mean Platelet Vol. 11.9 fl (6.2-12.0); Monocyte% 5.2 % (0-10); NRBC Flagged by Analyzer 0 % (0-5); Neutrophil # 9.72 X10^3/uL (2.7-7.7); Neutrophil % 85.1 % (47-70); POSITIVE DIFFERENTIAL YES; Platelet Count 154 K/mm3 (150-450); RBC Distribution Width CV 15.6 % (11.6-14.6); RBC Distribution Width SD 50.4 fl (35.1-43.9); Red Blood Count 4.05 M/mm3 (4.6-6.2); White Blood Count 11.4 K/mm3 (4.4-11.0)
[2022-07-18 13:21] LABS: Differential Indicated SCAN CRITERIA MET
[2022-07-18 13:23] LABS: Erythrocyte Sedimentation Rate 16 mm/hr (0-20)
[2022-07-18 14:31] LABS: Differential Comment SCANNED
[2022-07-19 13:08] LABS: Anti-Scleroderma-70 AB <0.2 AI (0.0-0.9); SJOGREN'S Anti-SS-A test < 0.2 AI (0.0-0.9); SJOGREN'S Anti-SS-B test < 0.2 AI (0.0-0.9)
[2022-07-19 16:52] LABS: ANTINUCLEAR ANTIBODIES DIRECT Negative (Negative); Anti-dsDNA Ab 1 IU/mL (0-9)
[2022-07-20 16:09] LABS: Angiotensin Convert Enzyme 24 U/L (14-82); Cytoplasmic Ab (C-ANCA) <1:20 titer (Neg:<1:20)
[2022-07-21 15:08] LABS: Anti-Smooth Muscle ABS 6 Units (0-19); CCP IgG Antibodies 4 units (0-19); Perinuclear Ab (P-ANCA) <1:20 titer (Neg:<1:20)
== END | disposition home or self-care (01) ==
PROVIDERS: PCP Internal Medicine; Referring Provider Internal Medicine Pulmonary Disease; Visit Provider Internal Medicine Pulmonary Disease
DX: J84.9 Interstitial pulmonary disease, unspecified (principal); R06.00 Dyspnea, unspecified
CPT/HCPCS: 80076; 82164; 83516; 85025; 85652; 86038; 86140; 86200; 86225; 86235; 86256; 86431

== ENCOUNTER 2022-08-31 12:33 | Outpatient (RCR) | payer MEDICARE, OTHER, SELFPAY ==
[2019-08-27 11:35] VITALS: BMI 32.1
[2022-08-18 15:16] LABS: Hematocrit 38.3 % (40-54); Mean Corp Hgb Conc 31.3 g/dL (32-36); Mean Corpuscular Hgb 27.8 pg (27.0-32.0); Mean Corpuscular Volume 88.9 fL (80-94); Mean Platelet Vol. 11.2 fl (6.2-12.0); Platelet Count 211 K/mm3 (150-450); RBC Distribution Width SD 51.9 fl (35.1-43.9); Red Blood Count 4.31 M/mm3 (4.6-6.2)
[2022-08-18 15:40] LABS: Anion Gap 10 (5-15); Chloride 100 mmol/L (98-107); Potassium 4.7 mmol/L (3.5-5.1); Sodium Level 137 mmol/L (136-145)
[2022-08-31 15:11] LABS: Hematocrit 37.4 % (40-54); Hemoglobin 11.8 g/dL (13.0-16.5); Mean Corp Hgb Conc 31.6 g/dL (32-36); Mean Corpuscular Hgb 27.8 pg (27.0-32.0); Mean Platelet Vol. 11.3 fl (6.2-12.0); Platelet Count 174 K/mm3 (150-450); RBC Distribution Width CV 16.5 % (11.6-14.6); RBC Distribution Width SD 52.8 fl (35.1-43.9); Red Blood Count 4.25 M/mm3 (4.6-6.2); White Blood Count 13.9 K/mm3 (4.4-11.0)
[2022-08-31 15:17] LABS: Anion Gap 9 (5-15); Chloride 105 mmol/L (98-107); Potassium 4.4 mmol/L (3.5-5.1); Sodium Level 139 mmol/L (136-145)
== END 2022-08-31 18:00 | disposition home or self-care (01) ==
LOC: MTLAB 12:33
PROVIDERS: PCP Internal Medicine; Referring Provider Internal Medicine Pulmonary Disease; Visit Provider Internal Medicine Pulmonary Disease
DX: J84.9 Interstitial pulmonary disease, unspecified (principal)
CPT/HCPCS: 36415; 80051; 85027

== ENCOUNTER 2022-09-15 09:02 | Outpatient (RCR) | payer MEDICARE, OTHER, SELFPAY ==
[2019-08-27 11:35] VITALS: BMI 32.1
[2022-09-15 10:16] LABS: BNP,B-Type NATRIURETIC PEPTIDE 557.4 pg/mL (0-100)
[2022-09-15 12:26] LABS: Absolute Lymphocyte Count 0.51 X10^3/uL (0.83-4.51); Absolute Neutrophil Count 10.6 X10^3/uL (2.0-7.7); Basophil# 0.06 X10^3/uL; Basophil% 0.5 % (0-1); Eosinophil# 0.23 X10^3/uL; Eosinophils% 1.9 % (0-5); Hematocrit 37.5 % (40-54); Hemoglobin 11.6 g/dL (13.0-16.5); Lymphocyte # 0.51 X10^3/ul (0.83-4.51); Lymphocyte % 4.2 % (19-41); Mean Corp Hgb Conc 30.9 g/dL (32-36); Mean Corpuscular Hgb 27.8 pg (27.0-32.0); Mean Corpuscular Volume 89.9 fL (80-94); Mean Platelet Vol. 11.2 fl (6.2-12.0); Monocyte# 0.63 X10^3/uL; Monocyte% 5.2 % (0-10); NRBC Flagged by Analyzer 0 % (0-5); Neutrophil # 10.64 X10^3/uL (2.7-7.7); Neutrophil % 87.6 % (47-70); POSITIVE DIFFERENTIAL YES; Platelet Count 193 K/mm3 (150-450); RBC Distribution Width CV 17.5 % (11.6-14.6); RBC Distribution Width SD 57.1 fl (35.1-43.9); Red Blood Count 4.17 M/mm3 (4.6-6.2); White Blood Count 12.1 K/mm3 (4.4-11.0)
[2022-09-15 12:33] LABS: Differential Indicated SCAN CRITERIA MET
[2022-09-15 12:41] LABS: Microalbumin,Random Urine 53.5 mg/L (NO RANGE EST.); Microalbumin:Creatinine Ratio 132.1 mg/g CRE (<30 mg/g CRE)
[2022-09-15 12:43] LABS: Vitamin D,25 Hydroxy 48.1 ng/mL
[2022-09-15 12:45] LABS: ALB/GLOB Ratio 1.1 RATIO (0.9-2.4); AST(SGOT) 12 U/L (15-37); Alanine Aminotransfer ALT/SGPT 24 U/L (16-61); Albumin, Serum 3.6 g/dL (3.2-5.0); Alkaline Phosphatase 61 U/L (45-117); Anion Gap 13 (5-15); BUN 35 mg/dL (7-18); BUN/Creat Ratio 22.7 RATIO (10-20); Calcium,Total 9.5 mg/dL (8.5-10.1); Chloride 105 mmol/L (98-107); Cholesterol 131 mg/dL (200); Creatinine, Serum 1.54 mg/dL (0.70-1.30); EST Glomerular Filtration Rate 47 mL/min (>60); Est Glom Filt Rate - Afr Amer 57 mL/min (>60); Globulin 3.3 g/dL (2.2-4.2); Glucose 156 mg/dL (74-106); High Density Lipoprotein 38 mg/dL; PSA,Total- Diagnostic 0.19 ng/mL (0.0-4.0); Potassium 4.1 mmol/L (3.5-5.1); Protein, Total 6.9 g/dL (6.4-8.2); Sodium Level 141 mmol/L (136-145); Triglycerides 182 mg/dL; Very Low Density Lipoprotein 36 mg/dL (5-40)
[2022-09-15 12:46] LABS: Hemoglobin A1c 8.2 % (3.8-5.6)
[2022-09-15 13:09] LABS: Differential Comment SCANNED
[2022-09-16 10:24] LABS: AFP, Tumor Marker < 1.8 ng/mL (0.0-8.4)
== END 2022-09-15 11:02 | disposition home or self-care (01) ==
LOC: MTLAB 09:02
PROVIDERS: PCP Internal Medicine; Referring Provider Internal Medicine Pulmonary Disease; Visit Provider Internal Medicine Pulmonary Disease
DX: E11.65 Type 2 diabetes mellitus with hyperglycemia (principal); E78.2 Mixed hyperlipidemia; E55.9 Vitamin D deficiency, unspecified; R06.02 Shortness of breath; N40.1 Benign prostatic hyperplasia with lower urinary tract symptoms; K76.0 Fatty (change of) liver, not elsewhere classified; I50.9 Heart failure, unspecified; J84.9 Interstitial pulmonary disease, unspecified
CPT/HCPCS: 36415; 80053; 80061; 82043; 82105; 82306; 82570; 83036; 83880; 84153; 85025

== ENCOUNTER 2022-10-16 10:59 | Outpatient (RCR) | payer MEDICARE, OTHER, SELFPAY ==
[2019-08-27 11:35] VITALS: BMI 32.1
[2022-10-16 12:13] LABS: Hematocrit 36.1 % (40-54); Hemoglobin 11.5 g/dL (13.0-16.5); Mean Corp Hgb Conc 31.9 g/dL (32-36); Mean Corpuscular Hgb 28.2 pg (27.0-32.0); Mean Corpuscular Volume 88.5 fL (80-94); Mean Platelet Vol. 11.5 fl (6.2-12.0); Platelet Count 175 K/mm3 (150-450); RBC Distribution Width CV 17.5 % (11.6-14.6); RBC Distribution Width SD 56.1 fl (35.1-43.9); Red Blood Count 4.08 M/mm3 (4.6-6.2); White Blood Count 12.3 K/mm3 (4.4-11.0)
[2022-10-16 12:55] LABS: Anion Gap 12 (5-15); Chloride 103 mmol/L (98-107); Potassium 4.1 mmol/L (3.5-5.1); Sodium Level 139 mmol/L (136-145)
== END 2022-10-16 18:00 | disposition home or self-care (01) ==
LOC: MTLAB 10:59
PROVIDERS: PCP Internal Medicine; Referring Provider Internal Medicine Pulmonary Disease; Visit Provider Internal Medicine Pulmonary Disease
DX: J84.9 Interstitial pulmonary disease, unspecified (principal)
CPT/HCPCS: 36415; 80051; 85027

== ENCOUNTER → 2023-02-20 | Outpatient (CLI) | payer MEDICARE, OTHER, SELFPAY ==
[2019-08-27 11:35] VITALS: BMI 32.1
--- NOTE | 2023-02-20 10:04 | US_ITS ---
STUDY: ABDOMINAL ULTRASOUND - RIGHT UPPER QUADRANT; ELASTOGRAPHY REASON FOR VISIT: Male, 72 years old. Fatty infiltration of the liver. TECHNIQUE: Ultrasound evaluation of the right upper quadrant was performed with real-time and static barragan-scale imaging. Point quantification shear wave elastography was performed (smsPREP). TECHNICAL QUALITY: Adequate. COMPARISON: Comparison is made with prior study dated March 24, 2021. FINDINGS: Liver: The liver measures 12.5 cm. There is increased echogenicity consistent with fatty infiltration. The bile ducts are within normal limits. There is hepatic color flow. The direction of portal flow is hepatopetal. There is a 1.2 cm x 1 cm x 1 cm cyst in the left lobe of the thyroid. Median liver stiffness measured 6.7 kPa. Gallbladder: The patient is status post cholecystectomy. Common Bile Duct (C.B.D.): The common bile duct measures 4 mm. Pancreas: Limited visualization of the pancreas due to overlying bowel gas. Right Kidney: Normal size of the right kidney. The right kidney measures 10.7 cm x 4.9 cm x 7 cm. Normal renal cortex. The right cortex measures 2.8 cm. There is no demonstrated renal mass or cyst. There is no right hydronephrosis. US/ABD Limited w/ Elastography IMPRESSION: 1. Liver stiffness measures 6.7 kPa compatible with F2-F3 (Mild to moderate liver fibrosis) Metavir score. Electronically Signed: Romaine Hart MD at 9:37 EDT ,
--- NOTE | 2023-02-20 10:57 | BD_ITS ---
STUDY: DUAL ENERGY X-RAY ABSORPTIOMETRY / DXA REASON FOR EXAM: Male, 72 years old. 733.00OsteoporosisBONE DENSITY REASON FOR EXAM TECHNIQUE: Bone Mineral Density (BMD) measurements of lumbar spine and bilateral hips were obtained. COMPARISON: Comparison is made with prior study dated October 07, 2009. FINDINGS: Lumbar Spine (L1-L4): g/cm2 (1.550) / T-score (4.5) / Z-score (5.5) Findings are suggestive of normal bone density with a low fracture risk. Left Femur Total: g/cm2 (1.194) / T-score (1.1) / Z-score (1.8) Left Femoral Neck: g/cm2 (0.944) / T-score (0.1) / Z-score (1.4) Right Femur Total: g/cm2 (1.235) / T-score (1.3) / Z-score (2.1) Right Femoral Neck: g/cm2 (0.981) / T-score (0.4) / Z-score (1.7) The T-Scores on the most recent prior examination were: Lumbar Spine (L1-L4): There has been improvement of bone density since the previous examination. Left Femur Total: which represents a worsening of 4.8%. Right Femur Total: which represents a worsening of 2.8%. BD/Dexa Bone Density Study IMPRESSION: The patient is considered normal as outlined below according to World Gary Organization (WHO) criteria with a low fracture risk. There has been worsening of bone density since the previous examination. Reference Information: The T-score is the number of standard deviations above or below the standard which is normal for young adults at their peak bone mineral density. The World Health Organization (WHO) interprets the T-scores as follows: Above -1 Normal bone density Between -1 and -2.5 Osteopenia Equal to / or below -2.5 Osteoporosis As a practical clinical guideline, osteopenia may be graded as follows: Mild -1 through -1.5 Moderate -1.6 through -2.0 Severe -2.1 through -2.4 The Z-score is the number of standard deviations above or below age-matched controls. A Z-score of less than -1.5 would be considered abnormal. References: 1. NIH Osteoporosis and Related Bone Diseases www osteo.org 2. International Society for Clinical Densitometry www iscd.org 3. National Osteoporosis Foundation www nof.org Electronically Signed: Romaine Hart MD at 13:14 EDT ,
== END | disposition home or self-care (01) ==
LOC: OPBD 10:03
PROVIDERS: PCP Internal Medicine; Referring Provider Internal Medicine; Visit Provider Internal Medicine
DX: K76.0 Fatty (change of) liver, not elsewhere classified (principal); Z79.52 Long term (current) use of systemic steroids; Z79.899 Other long term (current) drug therapy
CPT/HCPCS: 76705; 76981; 77080